=== PATIENT | male | born 1955 | race Two or more races ===

== ENCOUNTER 2017-12-28 21:40 | Inpatient (IN) | payer MEDICARE, OTHER ==
--- NOTE | 2017-12-28 23:49 | ER Document Report ---
ED General <WOOD ACOSTA - Last Filed: 12/29/17 09:38> <KING CHURCHILL - Last Filed: 12/29/17 21:03> - General Chief Complaint: Shortness Of Breath Stated Complaint: SHORTNESS OF BREATH Time Seen by Provider: 12/28/17 23:34 Notes: Patient is a 62-year-old male that comes emergency department with chief complaint of shortness of breath, abdominal swelling, states that he has a cough and has been feeling feverish over the past day and a half. He denies specific chest pain. Past medical history of liver cirrhosis and ascites, last had abdominocentesis 10 days ago in [place], he normally gets it about every 2 weeks. He also is a dialysis patient (MWF), he had dialysis yesterday. Patient is a diabetic, [id number]. He does not have COPD but he has had many cases of pneumonia in the past, he is up-to-date on both influenza and pneumonia vaccines. Patient has now moved here, he has a primary care follow-up established but he has not been to them yet. (KING CHURCHILL) - Related Data Allergies/Adverse Reactions: No Known Drug Allergies Allergy (Verified 12/29/17 07:14) Past Medical History - General Information source: Patient, Relative - Social History Family History: Hyperlipidemia, Hypertension <WOOD ACOSTA - Last Filed: 12/29/17 09:38> - General Information source: Patient, Relative - Social History Smoking Status: Never Smoker Frequency of alcohol use: former heavy Drug Abuse: None Lives with: Family - Past Medical History Cardiac Medical History: Reports: Hx Hypertension Renal/ Medical History: Reports: Hx Hemodialysis GI Medical History: Reports: Hx Liver Failure - Immunizations Hx Diphtheria, Pertussis, Tetanus Vaccination: Yes <KING CHURCHILL - Last Filed: 12/29/17 21:03> Review of Systems <WOOD ACOSTA - Last Filed: 12/29/17 09:38> - Review of Systems Constitutional: See HPI EENT: No symptoms reported Cardiovascular: No symptoms reported Respiratory: See HPI Gastrointestinal: See HPI Genitourinary: No symptoms reported Male Genitourinary: No symptoms reported Musculoskeletal: No symptoms reported Skin: No symptoms reported Hematologic/Lymphatic: No symptoms reported Neurological/Psychological: No symptoms reported <KING CHURCHILL - Last Filed: 12/29/17 21:03> - Review of Systems Notes: REVIEW OF SYSTEMS: CONSTITUTIONAL : Denies fever, chills, or sweats. Denies recent illness. EENT: Denies eye, ear, throat, or mouth pain or symptoms. Denies nasal or sinus congestion or discharge. Denies throat, tongue, or mouth swelling or difficulty swallowing. CARDIOVASCULAR: Denies chest pain. Denies palpitations or racing or irregular heart beat. Denies ankle edema. RESPIRATORY: Denies cough, cold, or chest congestion. reports shortness of breath, difficulty breathing, or wheezing. GASTROINTESTINAL: reports abdominal pain or distention. Denies nausea, vomiting, or diarrhea. Denies blood in vomitus, stools, or per rectum. Denies black, tarry stools. Denies constipation. GENITOURINARY: Denies difficulty urinating, painful urination, burning, frequency, blood in urine, or discharge. MUSCULOSKELETAL: Denies back or neck pain or stiffness. Denies joint pain or swelling. SKIN: Denies rash, lesions or sores. HEMATOLOGIC : Denies easy bruising or bleeding. LYMPHATIC: Denies swollen, enlarged glands. NEUROLOGICAL: Denies confusion or altered mental status. Denies passing out or loss of consciousness. Denies dizziness or lightheadedness. Denies headache. Denies weakness or paralysis or loss of use of either side. Denies problems with gait or speech. Denies sensory loss, numbness, or tingling. Denies seizures. PSYCHIATRIC: Denies anxiety or stress. Denies depression, suicidal ideation, or homicidal ideation. ALL OTHER SYSTEMS REVIEWED AND NEGATIVE. Dictation was performed using [employer] voice recognition software PHYSICAL EXAMINATION: GENERAL: Well-appearing, well-nourished and in no acute distress. HEAD: Atraumatic, normocephalic. EYES: Pupils equal round and reactive to light, extraocular movements intact, sclera anicteric, conjunctiva are normal. ENT: Nares patent, oropharynx clear without exudates. Moist mucous membranes. NECK: Normal range of motion, supple without lymphadenopathy LUNGS: Breath sounds clear to auscultation bilaterally and equal. No wheezes rales or rhonchi. HEART: Regular rate and rhythm without murmurs ABDOMEN: Soft, nontender, nondistended abdomen. No guarding, no rebound. No masses appreciated. Musculoskeletal: Normal range of motion, no pitting or edema. No cyanosis. NEUROLOGICAL: Cranial nerves grossly intact. Normal speech, normal gait. Normal sensory, motor exams PSYCH: Normal mood, normal affect. SKIN: Warm, Dry, normal turgor, no rashes or lesions noted. (WOOD ACOSTA) Physical Exam - General General appearance: Alert In distress: None - Respiratory Respiratory status: Tachypnea - Minimal tachypnea Breath sounds: Normal. No: Decreased air movement, Nonproductive cough, Wheezing - Cardiovascular Rhythm: Regular. No: Tachycardia Heart sounds: Normal auscultation, S1 appreciated, S2 appreciated - Abdominal Distension: Distended Tenderness: Tender - Generalized tenderness, nonspecific, no guarding - Back Back: Normal, Nontender. No: Tender - Extremities General upper extremity: Normal inspection, Nontender, Normal strength, Normal temperature General lower extremity: Normal inspection, Nontender, Normal strength, Normal temperature. No: Edema - Neurological Neuro grossly intact: Yes Cognition: Normal Orientation: AAOx4 Pierson Coma Scale Eye Opening: Spontaneous Lucia Coma Scale Verbal: Oriented Pierson Coma Scale Motor: Obeys Commands Pierson Coma Scale Total: 15 Speech: Normal Motor strength normal: LUE, RUE, LLE, RLE Sensory: Normal - Skin Skin Temperature: Warm Skin Moisture: Dry Skin Color: Normal <KING CHURCHILL - Last Filed: 12/29/17 21:03> - Vital signs Vitals: Temp Pulse Resp BP Pulse Ox 99.1 F 75 20 143/64 H 93 12/28/17 21:53 12/28/17 21:53 12/28/17 21:53 12/28/17 21:53 12/28/17 21:53 Course - Laboratory Result Diagrams: 12/29/17 00:30 12/29/17 00:30 <WOOD ACOSTA - Last Filed: 12/29/17 09:38> - Laboratory Result Diagrams: 12/29/17 00:30 12/29/17 00:30 <KING CHURCHILL - Last Filed: 12/29/17 21:03> - Re-evaluation Re-evalutation: sawmill supervisor and nurse library manager were able to coordinate patient to see dialysis today at [facility] due to chronic renal failure with a creatinine of 6.26, BUN 26 at 0900. Consulted with hospitalist. Dr. Kaitlynn Guaman MD at 0900, unable to reach her until 0930. due to patient having pneumonia acquiring oxygen to keep his pulse oxygenation greater than 92%. On ambulation patient is in respiratory distress with having difficulty breathing and becoming very pale, does not have oxygen at home. He was accepted for admission to the medical floor. (KARLA,WOOD A) Patient cannot lie flat or walk any short distance without becoming severely short of breath. Abdomen is tender and distended although not rigid or severely tender. Patient reporting fevers and sweats at home. Lungs clear to auscultation. Patient initially mildly hypoxic, this improves at rest or on 2 L nasal cannula. CBC shows normocytic anemia, no leukocytosis. Probably secondary to chronic kidney disease. Chemistry shows expected renal failure, unremarkable otherwise. Troponin is indeterminate, patient is not having chest pain. Will cycle. EKG showing right bundle branch block, inverted T waves in leads III but no T-wave inversions in consecutive leads or ST segment changes. No comparison available. Chest x-ray showing pneumonia. Lactic acid is not elevated, venous blood gas is unremarkable. Beginning broad-spectrum antibiotics because of patient's multiple pneumonias and recent hospital visits for paracentesis. Discussed with Dr. Reddy. For patient's symptoms decision was made to perform paracentesis, patient and family request and are agreeable with this, Dr. Reddy to bedside to advise. 3600 mL's were removed but no additional fluid was removed because of equipment available. Patient reporting improvement afterwards, he is obviously less distended. 12/29/17 Called battery vent plug inserter on-call, Dr. Lemons, she states that she would be happy to perform dialysis on patient if there are slots available for them in the hospital today. Nursing staff called supervisor cab, they state that they do not have an available slot even though they do have the nurses because of high volume. Will speak with family for potentially either patient going home or transfer. Discussed with Dr. Reddy. Family hopeful about patient going home, however we performed ambulation, patient became very pale, began breathing hard, and then almost passed out. He had to be placed in a chair and then rolled back to his room. Not stable for discharge. Discussed potential transfer with family, they do not want to be transferred, they asked about different avenues. Called and spoke with on-call [facility] nurse, she states that she does not have any input or ability to help at this time, requests we call the local facility. I did discuss with family again and they still request not to be transferred. (KING CHURCHILL) - Vital Signs Vital signs: Temp Pulse Resp BP Pulse Ox 97.5 F 66 18 140/51 H 99 12/29/17 14:55 12/29/17 14:55 12/29/17 14:55 12/29/17 14:55 12/29/17 14:55 - Laboratory Laboratory results interpreted by me: 12/29/17 12/29/17 12/29/17 00:30 00:30 00:30 RBC 3.19 L Hgb 10.1 L Hct 30.5 L RDW 16.2 H Plt Count 75 L Seg Neutrophils % 80.4 H Lymphocytes % 8.9 L VBG pH 7.44 H BUN 32 H Creatinine 6.26 H Est GFR ( Amer) 11 L Est GFR (Non-Af Amer) 9 L Glucose 130 H Direct Bilirubin 0.7 H Alkaline Phosphatase 145 H Total Protein 6.2 L Albumin 2.9 L Procedures <WOOD ACOSTA - Last Filed: 12/29/17 09:38> - Paracentesis RLQ Time completed: 03:00 Consent obtained: Yes - verbal Paracentesis pre-procedure: Sterile PPE donned, Chloraprep applied, Sterile drapes applied Needle size: 14 Paracentesis location: RLQ Anesthetic type: 1% Lidocaine mL's of anesthetic: 5 Amount/type of drainage: 3600 cc of fluid, non-purulent Number of attempts: 1 Ultrasound guided: Yes Complications: No <KING CHURCHILL - Last Filed: 12/29/17 21:03> - Paracentesis RLQ Notes: 12/29/17 03:05 Dr. Reddy at bedside. Attempted to use the catheter with introducer, however this was unable to penetrate after an incision had been made with a scalpel through the abdominal wall and into the ascites fluid. Instead a 14-gauge needle was used without any difficulty, clear fluid obtained, no complications, stopped bleeding quickly with pressure, sterile dressing applied. (KING CHURCHILL) Discharge - Discharge Admitting Provider: Hospitalist - Dr. Kaitlynn Burpee Unit Admitted: Medical Floor <WOOD ACOSTA - Last Filed: 12/29/17 09:38> <KING CHURCHILL - Last Filed: 12/29/17 21:03> - Discharge Clinical Impression: Oxygen dependent Pneumonia Qualifiers: Pneumonia type: due to unspecified organism Laterality: right Lung location: unspecified part of lung Qualified Code(s): J18.9 - Pneumonia, unspecified organism Chronic renal failure Qualifiers: Chronic kidney disease stage: unspecified stage Qualified Code(s): N18.9 - Chronic kidney disease, unspecified Condition: Good Disposition: ADMITTED INPATIENT
--- NOTE | 2017-12-29 00:23 | RADIOLOGY REPORT (SQ) ---
EXAM DESCRIPTION: CHEST SINGLE VIEW CLINICAL HISTORY: shortness of breath, cough, fever COMPARISON: None. FINDINGS: Single frontal view of the chest. Right-sided pacemaker. Cardiomegaly. Left basilar airspace opacity. Possible small left pleural effusion. No pneumothorax identified. Leads overlie the chest. No acute osseous abnormalities. Upper abdominal soft tissues are unremarkable. IMPRESSION: 1. Left basilar airspace opacity concerning for pneumonia. Continued radiographic follow-up to resolution recommended. 2. Cardiomegaly.
[2017-12-29 00:54] LABS: ABSOLUTE BASOPHILS # (AUTO) 0.1 10^3/uL (0.0-0.2); ABSOLUTE EOSINOPHILS # (AUTO) 0.1 10^3/uL (0.0-0.6); ABSOLUTE LYMPHOCYTES (AUTO) 0.6 10^3/uL (0.5-4.7); ABSOLUTE MONOCYTES (AUTO) 0.6 10^3/uL (0.1-1.4); ABSOLUTE NEUT (AUTO) 5.2 10^3/uL (1.7-8.2); BASOPHILS % (AUTO) 0.8 % (0-2); EOSINOPHILS % (AUTO) 1.2 % (0-6); HEMATOCRIT 30.5 % (37.9-51.0); HEMOGLOBIN 10.1 g/dL (13.5-17.0); LYMPHOCYTES % (AUTO) 8.9 % (13-45); MEAN CORPUSCULAR HEMOGLOBIN 31.6 pg (27.0-33.4); MEAN CORPUSCULAR VOLUME 96 fl (80-97); MONOCYTES % (AUTO) 8.7 % (3-13); RED BLOOD COUNT 3.19 10^6/uL (4.35-5.55); RED CELL DISTRIBUTION WIDTH 16.2 % (11.5-14.0); SEGMENTED NEUTROPHILS % (AUTO) 80.4 % (42-78); TOTAL CELLS COUNTED % (AUTO) 100 %; WHITE BLOOD COUNT 6.5 10^3/uL (4.0-10.5)
[2017-12-29 01:03] LABS: VENOUS BLOOD BASE EXCESS 5.6 mmol/L; VENOUS BLOOD HCO3 30.7 mmol/L (20-32); VENOUS BLOOD PCO2 46.5 mmHg (35-63); VENOUS BLOOD PH 7.44 (7.30-7.42)
[2017-12-29 01:12] LABS: ALANINE AMINOTRANSFERASE 26 U/L (21-72); ALBUMIN 2.9 g/dL (3.5-5.0); ALKALINE PHOSPHATASE 145 U/L (38-126); ANION GAP 12 (5-19); ASPARTATE AMINO TRANSFERASE 28 U/L (17-59); BILIRUBIN,DIRECT 0.7 mg/dL (0.0-0.4); BILIRUBIN,TOTAL 0.7 mg/dL (0.2-1.3); BLOOD UREA NITROGEN 32 mg/dL (7-20); CALCIUM 8.7 mg/dL (8.4-10.2); CARBON DIOXIDE 29 mmol/L (22-30); CHLORIDE 98 mmol/L (98-107); GLUCOSE 130 mg/dL (75-110); LIPASE 48.2 U/L (23-300); POTASSIUM 4.7 mmol/L (3.6-5.0); SODIUM 139.4 mmol/L (137-145); TOTAL PROTEIN 6.2 g/dL (6.3-8.2)
[2017-12-29 01:23] LABS: PLATELET COUNT 75 10^3/uL (150-450)
[2017-12-29] MEDS ORDERED: VANCOMYCIN HCL INJ 1000 MG VIAL IV ONE (01:39)
[2017-12-29] MEDS ORDERED: CEFEPIME 2 GM/D5W RTU 2 GM/50 ML RTUPB IV ONE (01:39)
[2017-12-29 03:51] LABS: FLUID COLOR YELLOW; FLUID SOURCE ASCITES; FLUID TYPE PERITONEAL
[2017-12-29 03:52] LABS: FLUID APPEARANCE SLIGHTLY HAZY; FLUID VISCOSITY LIQUID
--- NOTE | 2017-12-29 08:42 | EKG REPORT ---
SEVERITY:- ABNORMAL ECG - SINUS RHYTHM RBBB AND LAFB : Confirmed by: Kemar Fischer 29-Dec-2017 08:41:59
[2017-12-29] MEDS ORDERED: EPOETIN ALFA INJ 20000 UNIT/1 ML VIAL (RENAL) IV PRN (08:45)
[2017-12-29] MEDS ORDERED: ACETAMINOPHEN 325 MG TABLET PO PRN (10:56)
[2017-12-29 11:37] LABS: PATH REVIEW PATHOLOGIST REVIEWED
[2017-12-29 11:57] LABS: INTERNATIONAL RATION (INR) 1.03; PROTHROMBIN TIME 14.3 SEC (11.4-15.4)
[2017-12-29 12:16] LABS: CREATINE KINASE MB 1.38 ng/mL (<4.55)
[2017-12-29 12:20] LABS: TROPONIN I 0.084 ng/mL
[2017-12-29 12:31] LABS: FREE T4 (FREE THYROXINE) 1.73 ng/dL (0.78-2.19)
[2017-12-29 12:46] LABS: THYROID STIMULATING HORMONE 1.62 uIU/mL (0.47-4.68)
[2017-12-29] MEDS: HEPARIN SOD (PORCINE) 5,000 UNIT/ML 1 ML SYRINGE SUBCUT SCH ×2 (13:43→21:13)
--- NOTE | 2017-12-29 13:52 | PDOC CONSULTATION ---
Consultation Consult Date: 12/29/17 Consult reason:: Emergent dialysis in face of CHF and cirrhosis. History of Present Illness Admission Date/PCP: 12/29/17 09:39 NO LOCALMD History of Present Illness: BHUPENDRA JUAREZ is a 62 year old male with a h/o of long standing complicated Diabetes, Hypertension, ESRD on HD, Cryptogenic Cirrhosis with portal hypertension who recently moved here from [place] presents to the hospital early this AM with c.o Cough with expectoration, fever and chills x 1- 2 days duration, progressive abdominal distension, dyspnea and feeling weak. He was desaturating with minimal exertion. He has been diagnosed to have left Pneumonia on CKR. S/P antibiotics. He also had approx 4 L of paracentesis of his acitic fluid and feels better after that. He was dialysed yesterday as at [facility] without any issues. He is a poor historian. He has Cirrhosis and has been having persistent and recurring Ascites and was undergoing periodic Paracentesis. He used to have it initially infrequently but in the last two months have had to have it q 2 weekly. His last one was a week- 10 days ago just before he moved here from [place]. No c/o of nay abdominal pains, fever or chills. He has been constipated for a while and with a frequency of a bowel q 2-3 days. No idea of Lactulose. His labs and meds were reviewed .He is currently being sen on HD .Undergoing HD without any issues. Past Medical History Cardiac Medical History: Reports: CHF-Systolic, Hypertension-primary Neurological Medical History: Reports: Ischemic CVA Neurological History Note: Of left side. Renal/ Medical History: Reports: End Stage Renal Disease, Secondary Hyperparathyroidism GI Medical History: Reports: Cirrhosis - - Cryptogenic Hematology Medical History: Reports Anemia of Chronic Kidney Disease Social History Smoking Status: Former Smoker Family History Parental Family History Reviewed: Yes - pos for DM and ESRD. Children Family History Reviewed: Yes Sibling(s) Family History Reviewed.: Yes - brother with DM and ESRD Medication/Allergy Home Medications: Amlodipine Besylate [Norvasc 10 mg Tablet] 10 mg PO DAILY 12/29/17 Aspirin [Ecotrin 325 mg EC Tablet] 325 mg PO DAILY 12/29/17 Atorvastatin Calcium [Lipitor 10 mg Tablet] 10 mg PO QHS 12/29/17 Cinacalcet HCl [Sensipar 30 mg Tablet] 30 mg PO WSUPPER 12/29/17 Citalopram Hydrobromide [Celexa 20 mg Tablet] 40 mg PO DAILY 12/29/17 Clindamycin Phosphate [Clindamax Lotion] 1 applic TOP BID 12/29/17 Ferric Citrate [Auryxia] 420 mg PO MEALS 12/29/17 Gabapentin [Neurontin 100 mg Capsule] 100 mg PO QHS 12/29/17 Glimepiride [Amaryl] 2 mg PO DAILY 12/29/17 Multivitamin [Tab-A-Jose (Multiple Vitamin) Tablet] 1 tab PO DAILY 12/29/17 Omeprazole 20 mg PO DAILY 12/29/17 Pentoxifylline [Trental 400 mg Tablet.sa] 400 mg PO DAILY 12/29/17 Pyridoxine HCl (Vitamin B6) [Vitamin B-6] 100 mg PO DAILY 12/29/17 Ranitidine HCl [Zantac] 300 mg PO ACSUPPER 12/29/17 Tiotropium [place] [Spiriva Handihaler 5 Cap/Kit (18 Mcg/Cap)] 2 puff IH DAILY 12/29/17 Clonidine HCl [Catapres 0.1 mg Tablet] 0.1 mg PO Q8HP PRN tablet 01/01/18 Doxycycline Hyclate [Vibramycin 100 mg Tablet] 100 mg PO Q12 5 Days #10 tablet 01/01/18 Allergies/Adverse Reactions: No Known Drug Allergies Allergy (Verified 12/29/17 07:14) Review of Systems Constitutional: PRESENT: anorexia, fatigue. ABSENT: chills, fever(s) Nose, Mouth, and Throat: ABSENT: mouth pain, sore throat Cardiovascular: PRESENT: dyspnea on exertion, edema, palpitations. ABSENT: orthropnea Respiratory: PRESENT: cough, dyspnea. ABSENT: hemoptysis Gastrointestinal: PRESENT: bloating, constipation. ABSENT: abdominal pain, coffee ground emesis, diarrhea, hematemesis, melena, nausea, vomiting Neurological: ABSENT: abnormal gait, abnormal movements, abnormal speech, confusion, focal weakness Hematologic/Lymphatic: ABSENT: easy bleeding, easy bruising, lymphadenopathy Physical Exam Vital Signs: Temp Pulse Resp BP Pulse Ox 97.9 F 75 11 L 108/48 L 99 12/29/17 07:01 12/28/17 21:53 12/29/17 07:59 12/29/17 08:00 12/29/17 08:01 General appearance: PRESENT: no acute distress Eye exam: PRESENT: conjunctiva pink, EOMI, PERRLA. ABSENT: nystagmus Mouth exam: PRESENT: moist, neck supple Neck exam: ABSENT: lymphadenopathy, meningismus, tenderness, thyromegaly, tracheal deviation Respiratory exam: PRESENT: clear to auscultation gustavo, crackles. ABSENT: rhonchi Cardiovascular exam: PRESENT: +S1, +S2, systolic murmur GI/Abdominal exam: PRESENT: ascites, distended, normal bowel sounds, organomegaly, soft. ABSENT: tenderness Extremities exam: PRESENT: pedal edema Neurological exam: PRESENT: alert, awake, oriented to person, oriented to place Psychiatric exam: PRESENT: appropriate affect Skin exam: PRESENT: normal color. ABSENT: cyanosis, erythema, mottled Results Laboratory Results: 12/29/17 11:30 TSH 1.62 Free T4 1.73 12/29/17 12/29/17 11:30 11:30 Creatine Kinase 22 L CK-MB (CK-2) 1.38 Troponin I 0.084 Impressions: Chest X-Ray 12/28/17 23:43 IMPRESSION: 1. Left basilar airspace opacity concerning for pneumonia. Continued radiographic follow-up to resolution recommended. 2. Cardiomegaly. Assessment & Plan - Diagnosis (1) ESRD (end stage renal disease) on dialysis Plan: Sen on HD. Undergoing HD without any issues. Its being supervised to ensure a safe and smooth procedure. VS stable.Orders were discussed with treating RN. Plan to remove 2 - 3 L as tolerated. (2) Cirrhosis Plan: Cryptogenic. Has Portal hypertension with recurrent and persistent ascites for which he has been having paracentesis q 2 weekly over the last 2 -3 months now. Needs to have paracentesis doen here. Later will need to have pcp and GI closely watching him. Adv the need for adequate bowel movements as he was constipated for the last 2 months or so. (3) Diabetes 1.5, managed as type 2 Plan: Adv on need for tight sugar control. (4) Pneumonia Qualifiers: Pneumonia type: due to unspecified organism Laterality: right Lung location: unspecified part of lung Qualified Code(s): J18.9 - Pneumonia, unspecified organism Plan: On antibiotics.
[2017-12-29] MEDS ORDERED: CLONIDINE HCL 0.1 MG TABLET PO PRN (16:06)
[2017-12-29] MEDS ORDERED: DEXTROSE 40% GEL 15 GM TUBE PO PRN ×4 (16:28→19:01)
[2017-12-29] MEDS ORDERED: GLUCAGON,HUMAN RECOMB 1 MG INJ IM PRN ×2 (16:28→19:01)
[2017-12-29] MEDS ORDERED: DEXTROSE 50%-WATER 25 GM/50 ML DISP.SYRIN IV PRN ×4 (16:28→19:01)
--- NOTE | 2017-12-29 16:28 | PDOC H&P ---
History of Present Illness Admission Date/PCP: 12/29/17 09:39 NO LOCALMD Patient complains of: Abdominal swelling, dyspnea History of Present Illness: This is a 62-year-old man who came to the ER with family secondary to abdominal pain and swelling along with shortness of breath. He has recently moved to this local area from [place], has moved here to be closer to family. He arrived into the local area within the past week and does not have a new doctor , has not set up with a new dialysis center. He tells us that regarding his abdominal distention he has cirrhosis of unknown etiology and receives regular paracenteses. He also tells us that he has diabetes and end-stage kidney disease for which he gets dialysis on Monday. He is found to have a pneumonia on chest x-ray. In the ER paracentesis was performed. He tolerated that procedure well and his abdominal situation is improved. He has gone to dialysis today from the ER. Secondary to pneumonia the patient is being admitted to the hospitalist service. 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 Last Time Smoked: 30 years ago Frequency of Alcohol Use: None Hx Recreational Drug Use: No Hx Prescription Drug Abuse: No - Advance Directive Resuscitation Status: Full Code Family History Family History: Hyperlipidemia, Hypertension Parental Family History Reviewed: Yes - Father was hemodialysis dependent from chronic kidney disease from diabetes Children Family History Reviewed: Yes - Son has thyroid problems and hypertension Sibling(s) Family History Reviewed.: Yes - His sister has kidney problems and diabetes Medication/Allergy Allergies/Adverse Reactions: No Known Drug Allergies Allergy (Verified 12/29/17 07:14) Review of Systems Constitutional: ABSENT: anorexia, chills, fever(s), headache(s) Eyes: ABSENT: visual disturbances Ears: ABSENT: hearing changes Nose, Mouth, and Throat: ABSENT: mouth pain, sore throat Cardiovascular: ABSENT: edema, orthropnea, palpitations Gastrointestinal: PRESENT: abdominal pain, bloating Musculoskeletal: ABSENT: back pain Integumentary: PRESENT: lesions - Transmetatarsal amputation site has small skin crack drainage or evidence of infection currently Neurological: PRESENT: numbness, tingling Psychiatric: ABSENT: anxiety, depression Endocrine: ABSENT: cold intolerance, heat intolerance Hematologic/Lymphatic: ABSENT: easy bleeding Physical Exam Vital Signs: Temp Pulse Resp BP Pulse Ox 97.5 F 66 18 140/51 H 99 12/29/17 14:55 12/29/17 14:55 12/29/17 14:55 12/29/17 14:55 12/29/17 14:55 General appearance: PRESENT: no acute distress, cooperative Head exam: PRESENT: atraumatic, normocephalic Eye exam: PRESENT: conjunctiva pink, EOMI, PERRLA. ABSENT: scleral icterus Mouth exam: PRESENT: moist, tongue midline Throat exam: ABSENT: tonsillar exudate Respiratory exam: PRESENT: prolonged expiratory phas, rales - Trace at the bilateral bases, unlabored. ABSENT: wheezes Cardiovascular exam: PRESENT: RRR, systolic murmur GI/Abdominal exam: PRESENT: distended - Slight distention without tenderness, normal bowel sounds, soft. ABSENT: guarding, tenderness Rectal exam: PRESENT: deferred Extremities exam: ABSENT: calf tenderness, pedal edema Musculoskeletal exam: PRESENT: other - Well-healed transmetatarsal amputation right foot, hemodialysis fistulas Neurological exam: PRESENT: alert, awake, oriented to person, oriented to place , oriented to situation, CN II-XII grossly intact Psychiatric exam: PRESENT: appropriate affect. ABSENT: anxious Skin exam: PRESENT: dry, warm - Small crack right foot Results Laboratory Results: 12/29/17 11:30 TSH 1.62 Free T4 1.73 12/29/17 12/29/17 11:30 11:30 Creatine Kinase 22 L CK-MB (CK-2) 1.38 Troponin I 0.084 Impressions: Chest X-Ray 12/28/17 23:43 IMPRESSION: 1. Left basilar airspace opacity concerning for pneumonia. Continued radiographic follow-up to resolution recommended. 2. Cardiomegaly. Assessment & Plan - Diagnosis (1) ESRD (end stage renal disease) on dialysis Is this a current diagnosis for this admission?: Yes Plan: Patient is diabetic and hypertensive. He undergoes dialysis Monday. He has just moved to the area and does not have any doctors or dialysis center. I have consulted the motor scooter repairer. Has undergone dialysis today. We will continue with Monday dialysis and will follow his labs. (2) Pneumonia Qualifiers: Pneumonia type: due to unspecified organism Laterality: right Lung location: unspecified part of lung Qualified Code(s): J18.9 - Pneumonia, unspecified organism Is this a current diagnosis for this admission?: Yes Plan: We will start the patient on ceftriaxone and azithromycin for community- acquired pneumonia. He has acute hypoxemic respiratory failure secondary to his pneumonia. We will titrate oxygen as is possible. (3) Skin abnormality Is this a current diagnosis for this admission?: Yes Plan: Wound care to prevent infection diabetic (4) Hypertension Is this a current diagnosis for this admission?: Yes Plan: We do not know what this patient's medication regimen is, I have asked his family to bring in the medication list, I have ordered as needed clonidine for now. He was slightly hypotensive after dialysis and now he is close to normotensive. Telemetry ordered. (5) Hypothyroidism Is this a current diagnosis for this admission?: Yes Plan: Patient thinks he has hypothyroidism but is unclear. Will order TSH and free T4. (6) Cirrhosis Is this a current diagnosis for this admission?: Yes Plan: Cryptogenic as far as we know at this time. We have asked family to bring in medical records from his previous doctors. He has undergone paracentesis in the ER. Hope to gain more information so that we know how to treat his cirrhosis appropriately, he is not an alcohol user and this is not thought to be an alcoholic cirrhosis. Monitor for need for repeat paracentesis. (7) Diabetes 1.5, managed as type 2 Is this a current diagnosis for this admission?: Yes Plan: Unknown medications. Have asked family to bring in his medication list. We will start him on lispro before meals and at bedtime for now. (8) Oxygen dependent Is this a current diagnosis for this admission?: Yes Plan: Acute hypoxemic respiratory failure secondary to pneumonia. He is on oxygen now and we will treat the pneumonia and titrate oxygen off as we are able. - Time Time Spent: Greater than 70 Minutes Anticipated discharge: Home - Inpatient Certification Based on my medical assessment, after consideration of the patient's comorbidities, presenting symptoms, or acuity I expect that the services needed warrant INPATIENT care.: Yes I certify that my determination is in accordance with my understanding of Medicare's requirements for reasonable and necessary INPATIENT services [42 CFR 412.3e].: Yes Medical Necessity: Significant Comorbidiites Make Outpatient Treatment Too Risky , Need Close Monitoring Due to Risk of Patient Decompensation, Risk of Complication if Not Cared For in Hospital
[2017-12-29 17:51] LABS: CREATINE KINASE MB 1.57 ng/mL (<4.55); TROPONIN I 0.071 ng/mL
[2017-12-29 17:56] LABS: FREE T4 (FREE THYROXINE) 1.89 ng/dL (0.78-2.19)
[2017-12-29] MEDS ORDERED: CEFTRIAXONE SODIUM 1,000 MG in DEXTROSE 5%-WATER 50 ML IV SCH (18:00)
[2017-12-29] MEDS ORDERED: CEFTRIAXONE 1 GM/D5W RTU 1 GM/50 ML RTUPB IV SCH (18:00)
[2017-12-29 18:10] LABS: THYROID STIMULATING HORMONE 1.21 uIU/mL (0.47-4.68)
[2017-12-29] MEDS ORDERED: PENTOXIFYLLINE 400 MG TABLET.SA PO ONE (20:00)
[2017-12-29] MEDS ORDERED: CLINDAMYCIN PHOSPHATE TOP SCH (21:15)
[2017-12-29] MEDS: GABAPENTIN 100 MG CAPSULE PO SCH (21:16)
[2017-12-29] MEDS: ATORVASTATIN CALCIUM 10 MG TABLET PO SCH (21:16)
[2017-12-29] MEDS: DOXYCYCLINE HYCLATE 100 MG TABLET PO SCH (21:16)
[2017-12-29] MEDS ORDERED: (PENDING PHARMACY ID) (Ferric Citrate [Auryxia] 420 MG) PO SCH (22:00)
[2017-12-29] MEDS ORDERED: GABAPENTIN 100 MG CAPSULE PO SCH (22:00)
[2017-12-29] MEDS ORDERED: PYRIDOXINE HCL 100 MG PO SCH (22:00)
[2017-12-29 23:47] LABS: CREATINE KINASE MB 1.95 ng/mL (<4.55); TROPONIN I 0.069 ng/mL
[2017-12-30] MEDS: HEPARIN SOD (PORCINE) 5,000 UNIT/ML 1 ML SYRINGE SUBCUT SCH ×3 (05:44→22:24)
[2017-12-30] MEDS: LANSOPRAZOLE 15 MG TAB.RAP.DR PO SCH (06:19)
[2017-12-30 06:55] LABS: ALANINE AMINOTRANSFERASE 35 U/L (21-72); ALBUMIN 2.7 g/dL (3.5-5.0); ALKALINE PHOSPHATASE 149 U/L (38-126); ANION GAP 12 (5-19); ASPARTATE AMINO TRANSFERASE 29 U/L (17-59); BILIRUBIN,DIRECT 0.4 mg/dL (0.0-0.4); BILIRUBIN,TOTAL 0.5 mg/dL (0.2-1.3); BLOOD UREA NITROGEN 32 mg/dL (7-20); CALCIUM 8.6 mg/dL (8.4-10.2); CARBON DIOXIDE 30 mmol/L (22-30); CHLORIDE 97 mmol/L (98-107); GLUCOSE 178 mg/dL (75-110); PHOSPHORUS 4.9 mg/dL (2.5-4.5); POTASSIUM 4.4 mmol/L (3.6-5.0); SODIUM 138.8 mmol/L (137-145); TOTAL PROTEIN 5.6 g/dL (6.3-8.2)
[2017-12-30 07:03] LABS: HEMATOCRIT 30.3 % (37.9-51.0); HEMOGLOBIN 10.2 g/dL (13.5-17.0); MEAN CORPUSCULAR HGB CONC 33.6 g/dL (32.0-36.0); MEAN CORPUSCULAR VOLUME 95 fl (80-97); RED BLOOD COUNT 3.19 10^6/uL (4.35-5.55); RED CELL DISTRIBUTION WIDTH 16.1 % (11.5-14.0); WHITE BLOOD COUNT 4.7 10^3/uL (4.0-10.5)
[2017-12-30] MEDS ORDERED: (PENDING PHARMACY ID) (Ferric Citrate [Auryxia] 420 MG) PO SCH (08:00)
[2017-12-30] MEDS: INSULIN LISPRO 100 UNIT/ML 3 ML VIAL SUBCUT SCH ×3 (08:05→17:15)
[2017-12-30 08:18] LABS: PLATELET COUNT 64 10^3/uL (150-450)
[2017-12-30] MEDS ORDERED: AZITHROMYCIN 250 MG TABLET PO SCH (10:00)
[2017-12-30] MEDS ORDERED: PYRIDOXINE HCL 100 MG PO SCH (10:00)
[2017-12-30] MEDS ORDERED: CLINDAMYCIN PHOSPHATE TOP SCH (10:00)
[2017-12-30] MEDS: CITALOPRAM HYDROBROMIDE 20 MG TABLET PO SCH (10:32)
[2017-12-30] MEDS: PENTOXIFYLLINE 400 MG TABLET.SA PO SCH (10:32)
[2017-12-30] MEDS: ASPIRIN 325 MG TABLET, ENT COATED PO SCH (10:32)
[2017-12-30] MEDS: AMLODIPINE BESYLATE 10 MG TABLET PO SCH (10:33)
[2017-12-30] MEDS: PYRIDOXINE HCL 50 MG TABLET PO SCH (10:33)
[2017-12-30] MEDS: DOXYCYCLINE HYCLATE 100 MG TABLET PO SCH ×2 (10:33→22:33)
[2017-12-30] MEDS: MULTIVITAMIN TABLET PO SCH (10:33)
[2017-12-30] MEDS: TIOTROPIUM BROMIDE DPI 5 CAP/KIT (18 MCG/CAP) IH SCH (10:34)
[2017-12-30] MEDS ORDERED: (PENDING PHARMACY ID) (Ranitidine Hcl [Zantac] 300 MG) PO SCH (16:00)
--- NOTE | 2017-12-30 16:55 | RADIOLOGY REPORT (SQ) ---
EXAM DESCRIPTION: CHEST PA/LAT COMPLETED DATE/TIME: 12/30/2017 4:43 pm REASON FOR STUDY: PNEUMONIA COMPARISON: 12/28/2017. NUMBER OF VIEWS: One view. TECHNIQUE: Single frontal radiographic view of the chest acquired. LIMITATIONS: None. FINDINGS: LUNGS AND PLEURA: Mild interstitial edema with trace bilateral pleural effusions. MEDIASTINUM AND HILAR STRUCTURES: No masses or contour abnormality. HEART AND VASCULATURE: Cardiac enlargement. Vascular congestion. BONES: No acute findings. HARDWARE: Stable. OTHER: No other significant finding. IMPRESSION: MILD INTERSTITIAL EDEMA WITH TRACE BILATERAL PLEURAL EFFUSIONS. TECHNICAL DOCUMENTATION: JOB ID: [id number] [employer]- All Rights Reserved Reading location - IP/workstation name: [email or web address]
[2017-12-30] MEDS: CEFTRIAXONE SODIUM 1,000 MG in NORMAL SALINE 100 ML IV SCH (17:14)
[2017-12-30] MEDS: FAMOTIDINE 20 MG TABLET PO SCH (17:14)
[2017-12-30] MEDS: CINACALCET HCL 30 MG TABLET PO SCH (17:15)
--- NOTE | 2017-12-30 18:28 | PDOC PROGRESS REPORT ---
Subjective Progress Note for:: 12/30/17 Subjective:: Patient is frustrated that I have ordered a hemodialysis diet and he is essentially refusing to eat. He states he eats normal food at home and so I have ordered him a regular diet against my better judgment though I do want the patient to eat. We will follow his CBGs carefully. No chest pain. No new shortness of breath. Abdominal pain nausea or vomiting. He is overall feeling better. Reason For Visit: LEFT LOWER LOBE PNEUMONIA,ACUTE HYPOXEMIC Physical Exam Vital Signs: Temp Pulse Resp BP Pulse Ox 98.0 F 60 16 109/60 94 12/30/17 17:00 12/30/17 17:00 12/30/17 17:00 12/30/17 17:00 12/30/17 17:00 Intake & Output 12/29/17 12/30/17 12/31/17 06:59 06:59 07:59 Intake Total 1800 300 Output Total 2200 Balance -400 300 Weight 88.1 kg General appearance: PRESENT: no acute distress, cooperative Head exam: PRESENT: atraumatic, normocephalic Eye exam: PRESENT: EOMI Mouth exam: PRESENT: moist, tongue midline Respiratory exam: PRESENT: rales - trace at bilateral bases. ABSENT: rhonchi, wheezes Cardiovascular exam: PRESENT: RRR. ABSENT: systolic murmur Pulses: PRESENT: normal radial pulses GI/Abdominal exam: PRESENT: distended, normal bowel sounds, soft. ABSENT: firm , guarding, tenderness Rectal exam: PRESENT: deferred Neurological exam: PRESENT: alert, awake, oriented to person, oriented to place , oriented to situation, CN II-XII grossly intact Psychiatric exam: PRESENT: appropriate affect. ABSENT: anxious Skin exam: PRESENT: dry, warm - Dry right heel ulcer without evidence of infection, no pain. Crack in the right foot at the site of the transmetatarsal amputation without evidence of infection. Results Laboratory Results: 12/30/17 06:13 12/30/17 06:13 12/30/17 12/30/17 06:13 06:13 WBC 4.7 RBC 3.19 L Hgb 10.2 L Hct 30.3 L MCV 95 MCH 32.0 MCHC 33.6 RDW 16.1 H Plt Count 64 L Sodium 138.8 Potassium 4.4 Chloride 97 L Carbon Dioxide 30 Anion Gap 12 BUN 32 H Creatinine 5.62 H Est GFR ( Amer) 12 L Est GFR (Non-Af Amer) 10 L Glucose 178 H Calcium 8.6 Phosphorus 4.9 H Total Bilirubin 0.5 AST 29 ALT 35 Alkaline Phosphatase 149 H Total Protein 5.6 L Albumin 2.7 L 12/29/17 12/29/17 12/29/17 11:30 11:30 17:00 Creatine Kinase 22 L 25 L CK-MB (CK-2) 1.38 Troponin I 0.084 12/29/17 12/29/17 12/29/17 17:00 23:10 23:10 Creatine Kinase 27 L CK-MB (CK-2) 1.57 1.95 Troponin I 0.071 0.069 Impressions: Chest X-Ray 12/30/17 00:00 IMPRESSION: MILD INTERSTITIAL EDEMA WITH TRACE BILATERAL PLEURAL EFFUSIONS. Assessment & Plan - Diagnosis (1) ESRD (end stage renal disease) on dialysis Is this a current diagnosis for this admission?: Yes Plan: Continue dialysis Monday. Hopefully after dialysis on Monday we can discharge him to home with a safe follow-up plan. (2) Pneumonia Qualifiers: Pneumonia type: due to unspecified organism Laterality: right Lung location: unspecified part of lung Qualified Code(s): J18.9 - Pneumonia, unspecified organism Is this a current diagnosis for this admission?: Yes Plan: Improving, satting well on room air, continue ceftriaxone and doxycycline. (3) Skin abnormality Is this a current diagnosis for this admission?: Yes Plan: Patient is receiving wound care to the right foot. We are trying to offload the pressure as possible. He will need good PCP care which will be arranged prior to discharge. (4) Hypertension Is this a current diagnosis for this admission?: Yes Plan: I started his home medications. Blood pressure is well controlled. No changes. (5) Hypothyroidism Is this a current diagnosis for this admission?: Yes Plan: TSH and free T4 are normal. No medication indicated. (6) Cirrhosis Is this a current diagnosis for this admission?: Yes Plan: Cryptogenic. Patient will need close follow-up for regular paracenteses which he has been receiving for some time now. (7) Diabetes 1.5, managed as type 2 Is this a current diagnosis for this admission?: Yes Plan: Continue current care. (8) Oxygen dependent Is this a current diagnosis for this admission?: Yes Plan: His acute hypoxemic respiratory failure has resolved. He is no longer requiring oxygen. - Time Time Spent with patient: 25-34 minutes - Inpatient Certification Based on my medical assessment, after consideration of the patient's comorbidities, presenting symptoms, or acuity I expect that the services needed warrant INPATIENT care.: Yes I certify that my determination is in accordance with my understanding of Medicare's requirements for reasonable and necessary INPATIENT services [42 CFR 412.3e].: Yes Medical Necessity: Need Close Monitoring Due to Risk of Patient Decompensation, Risk of Complication if Not Cared For in Hospital
[2017-12-30] MEDS: ATORVASTATIN CALCIUM 10 MG TABLET PO SCH (22:32)
[2017-12-30] MEDS: GABAPENTIN 100 MG CAPSULE PO SCH (22:32)
[2017-12-30] MEDS: GUAIFENESIN 600 MG TABLET.SA PO SCH (22:33)
[2017-12-31] MEDS: HEPARIN SOD (PORCINE) 5,000 UNIT/ML 1 ML SYRINGE SUBCUT SCH ×2 (06:33→13:49)
[2017-12-31] MEDS: LANSOPRAZOLE 15 MG TAB.RAP.DR PO SCH (07:36)
[2017-12-31] MEDS: INSULIN LISPRO 100 UNIT/ML 3 ML VIAL SUBCUT SCH ×3 (08:19→16:21)
[2017-12-31] MEDS: GUAIFENESIN 600 MG TABLET.SA PO SCH ×2 (10:16→22:41)
[2017-12-31] MEDS: PENTOXIFYLLINE 400 MG TABLET.SA PO SCH (10:16)
[2017-12-31] MEDS: MULTIVITAMIN TABLET PO SCH (10:17)
[2017-12-31] MEDS: CITALOPRAM HYDROBROMIDE 20 MG TABLET PO SCH (10:17)
[2017-12-31] MEDS: AMLODIPINE BESYLATE 10 MG TABLET PO SCH (10:17)
[2017-12-31] MEDS: DOXYCYCLINE HYCLATE 100 MG TABLET PO SCH ×2 (10:17→22:41)
[2017-12-31] MEDS: ASPIRIN 325 MG TABLET, ENT COATED PO SCH (10:17)
[2017-12-31] MEDS: PYRIDOXINE HCL 50 MG TABLET PO SCH (10:17)
[2017-12-31] MEDS: TIOTROPIUM BROMIDE DPI 5 CAP/KIT (18 MCG/CAP) IH SCH (10:18)
[2017-12-31] MEDS: INSULIN LISPRO 100 UNIT/ML 3 ML VIAL SUBCUT PRN ×2 (11:42→22:42)
[2017-12-31] MEDS: FAMOTIDINE 20 MG TABLET PO SCH (16:32)
[2017-12-31] MEDS: CINACALCET HCL 30 MG TABLET PO SCH (16:32)
--- NOTE | 2017-12-31 16:56 | PDOC PROGRESS REPORT ---
Subjective Progress Note for:: 12/31/17 Subjective:: Mr. Sandoval is feeling good today. His breathing has improved. He is not producing much phlegm. No hematemesis. No hemoptysis. He is eating and drinking well. He realizes his CBG is a little bit high but if I did not give him a regular diet he would not eat he tells me. He is not constipated. He does not have acute pain. He is asking if he can shower today. No fever or chills. Reason For Visit: LEFT LOWER LOBE PNEUMONIA,ACUTE HYPOXEMIC Physical Exam Vital Signs: Temp Pulse Resp BP Pulse Ox 98.3 F 60 16 111/33 L 93 12/31/17 07:28 12/31/17 14:00 12/31/17 07:28 12/31/17 07:28 12/31/17 07:28 Intake & Output 12/30/17 12/31/17 01/01/18 05:59 06:59 06:59 Intake Total Output Total Balance Weight General appearance: PRESENT: no acute distress, cooperative Head exam: PRESENT: atraumatic, normocephalic Eye exam: PRESENT: conjunctiva pink, EOMI Mouth exam: PRESENT: moist, tongue midline Respiratory exam: PRESENT: rales - Trace rales at the bilateral bases, unlabored. ABSENT: rhonchi, wheezes Cardiovascular exam: PRESENT: RRR. ABSENT: systolic murmur GI/Abdominal exam: PRESENT: ascites, normal bowel sounds, soft. ABSENT: distended, firm, guarding, tenderness Extremities exam: PRESENT: other - left arm HD fistula, very enlarged Musculoskeletal exam: PRESENT: ambulatory Neurological exam: PRESENT: alert, awake, oriented to person, oriented to place , oriented to situation, CN II-XII grossly intact Psychiatric exam: PRESENT: appropriate affect. ABSENT: anxious Skin exam: PRESENT: dry, warm, other - Right heel with dark uninfected eschar, crack in the transmetatarsal amputation site. No sign of infection. Results Laboratory Results: 12/30/17 06:13 12/30/17 06:13 12/29/17 12/29/17 12/29/17 11:30 11:30 17:00 Creatine Kinase 22 L 25 L CK-MB (CK-2) 1.38 Troponin I 0.084 12/29/17 12/29/17 12/29/17 17:00 23:10 23:10 Creatine Kinase 27 L CK-MB (CK-2) 1.57 1.95 Troponin I 0.071 0.069 Impressions: Chest X-Ray 12/30/17 00:00 IMPRESSION: MILD INTERSTITIAL EDEMA WITH TRACE BILATERAL PLEURAL EFFUSIONS. Assessment & Plan - Diagnosis (1) ESRD (end stage renal disease) on dialysis Is this a current diagnosis for this admission?: Yes Plan: Patient gets dialysis Monday. He will have dialysis here tomorrow. Hopefully will be able to discharge him subsequent to that. He has been seen by the floor waxer here and hopefully tomorrow we can arrange for him to see that physician regularly. (2) Pneumonia Qualifiers: Pneumonia type: due to unspecified organism Laterality: right Lung location: unspecified part of lung Qualified Code(s): J18.9 - Pneumonia, unspecified organism Is this a current diagnosis for this admission?: Yes Plan: Continues to improve, satting well on room air, continue ceftriaxone and doxycycline. Will need to transition ceftriaxone to oral for discharge. (3) Skin abnormality Is this a current diagnosis for this admission?: Yes Plan: Right foot lesions are stable appearing. WIll cont to monitor closely. (4) Hypertension Is this a current diagnosis for this admission?: Yes Plan: Doing well on the medications that he had been off of for a month but that I have restarted. His blood pressure is stable. (5) Cirrhosis Is this a current diagnosis for this admission?: Yes (6) Diabetes 1.5, managed as type 2 Is this a current diagnosis for this admission?: Yes Plan: Blood sugars have been running 150s to just over 200. Patient states this is normal for him and if there are any lower he feels bad. When he was on hemodialysis diabetic diet he was not eating and insisted that he eat a regular diet. We will continue to try to work with this patient to improve his blood glucose levels and we will continue to educate him about the importance of a hemodialysis and diabetic diet. (7) Oxygen dependent Is this a current diagnosis for this admission?: Yes Plan: Resolved. Patient no longer hypoxemic. - Time Time Spent with patient: 25-34 minutes Medications reviewed and adjusted accordingly: Yes - Inpatient Certification Based on my medical assessment, after consideration of the patient's comorbidities, presenting symptoms, or acuity I expect that the services needed warrant INPATIENT care.: Yes I certify that my determination is in accordance with my understanding of Medicare's requirements for reasonable and necessary INPATIENT services [42 CFR 412.3e].: Yes Medical Necessity: Significant Comorbidiites Make Outpatient Treatment Too Risky
[2017-12-31 17:37] LABS: HEMATOCRIT 31.7 % (37.9-51.0); HEMOGLOBIN 10.8 g/dL (13.5-17.0); MEAN CORPUSCULAR HEMOGLOBIN 31.9 pg (27.0-33.4); MEAN CORPUSCULAR HGB CONC 33.9 g/dL (32.0-36.0); MEAN CORPUSCULAR VOLUME 94 fl (80-97); RED BLOOD COUNT 3.38 10^6/uL (4.35-5.55); RED CELL DISTRIBUTION WIDTH 15.9 % (11.5-14.0); WHITE BLOOD COUNT 4.9 10^3/uL (4.0-10.5)
[2017-12-31 17:52] LABS: ANION GAP 16 (5-19); BLOOD UREA NITROGEN 45 mg/dL (7-20); CALCIUM 8.4 mg/dL (8.4-10.2); CARBON DIOXIDE 24 mmol/L (22-30); CHLORIDE 97 mmol/L (98-107); GLUCOSE 178 mg/dL (75-110); POTASSIUM 4.7 mmol/L (3.6-5.0); SODIUM 136.7 mmol/L (137-145)
[2017-12-31 18:00] LABS: PLATELET COUNT 65 10^3/uL (150-450)
[2017-12-31] MEDS: CEFTRIAXONE SODIUM 1,000 MG in NORMAL SALINE 100 ML IV SCH (18:28)
[2017-12-31] MEDS: ATORVASTATIN CALCIUM 10 MG TABLET PO SCH (22:41)
[2017-12-31] MEDS: GABAPENTIN 100 MG CAPSULE PO SCH (22:41)
[2018-01-01 06:00] LABS: ABSOLUTE EOSINOPHILS # (AUTO) 0.1 10^3/uL (0.0-0.6); ABSOLUTE LYMPHOCYTES (AUTO) 0.8 10^3/uL (0.5-4.7); ABSOLUTE MONOCYTES (AUTO) 0.5 10^3/uL (0.1-1.4); ABSOLUTE NEUT (AUTO) 3.4 10^3/uL (1.7-8.2); EOSINOPHILS % (AUTO) 2.1 % (0-6); HEMATOCRIT 29.8 % (37.9-51.0); HEMOGLOBIN 10.1 g/dL (13.5-17.0); LYMPHOCYTES % (AUTO) 15.8 % (13-45); MEAN CORPUSCULAR HEMOGLOBIN 31.8 pg (27.0-33.4); MEAN CORPUSCULAR HGB CONC 33.9 g/dL (32.0-36.0); MEAN CORPUSCULAR VOLUME 94 fl (80-97); MONOCYTES % (AUTO) 9.9 % (3-13); RED BLOOD COUNT 3.17 10^6/uL (4.35-5.55); RED CELL DISTRIBUTION WIDTH 15.4 % (11.5-14.0); SEGMENTED NEUTROPHILS % (AUTO) 71.2 % (42-78); TOTAL CELLS COUNTED % (AUTO) 100 %; WHITE BLOOD COUNT 4.8 10^3/uL (4.0-10.5)
[2018-01-01 06:19] LABS: ANION GAP 15 (5-19); BLOOD UREA NITROGEN 46 mg/dL (7-20); CALCIUM 7.8 mg/dL (8.4-10.2); CARBON DIOXIDE 24 mmol/L (22-30); CHLORIDE 97 mmol/L (98-107); GLUCOSE 104 mg/dL (75-110); POTASSIUM 4.6 mmol/L (3.6-5.0); SODIUM 136.4 mmol/L (137-145)
[2018-01-01 06:27] LABS: PLATELET COUNT 62 10^3/uL (150-450)
[2018-01-01] MEDS: LANSOPRAZOLE 15 MG TAB.RAP.DR PO SCH (06:56)
[2018-01-01] MEDS: INSULIN LISPRO 100 UNIT/ML 3 ML VIAL SUBCUT SCH ×3 (07:25→17:28)
[2018-01-01] MEDS ORDERED: EPOETIN ALFA INJ 20000 UNIT/1 ML VIAL (RENAL) IV PRN (07:45)
[2018-01-01] MEDS ORDERED: EPOETIN ALFA 2,000 UNIT in SYRINGE, DISPOSABLE, 1 EACH IV PRN (08:13)
[2018-01-01] MEDS: PYRIDOXINE HCL 50 MG TABLET PO SCH (12:44)
[2018-01-01] MEDS: ASPIRIN 325 MG TABLET, ENT COATED PO SCH (12:45)
[2018-01-01] MEDS: GUAIFENESIN 600 MG TABLET.SA PO SCH (12:45)
[2018-01-01] MEDS: MULTIVITAMIN TABLET PO SCH (12:45)
[2018-01-01] MEDS: CITALOPRAM HYDROBROMIDE 20 MG TABLET PO SCH (12:45)
[2018-01-01] MEDS: DOXYCYCLINE HYCLATE 100 MG TABLET PO SCH (12:45)
[2018-01-01] MEDS: TIOTROPIUM BROMIDE DPI 5 CAP/KIT (18 MCG/CAP) IH SCH (12:46)
[2018-01-01] MEDS: PENTOXIFYLLINE 400 MG TABLET.SA PO SCH (12:48)
[2018-01-01] MEDS: AMLODIPINE BESYLATE 10 MG TABLET PO SCH (13:00)
--- NOTE | 2018-01-01 15:31 | PDOC PROGRESS REPORT ---
Subjective Progress Note for:: 01/01/18 Reason For Visit: Seen on HD today. Undergoing dialysis without any issues. Has been having daily 1-2 bm though n ot loose. Appetite is fair. He denies any more dyspnea. NO c/o chest pains, abdominal pains, fever or chills. Labs and meds were reviewed with him. Orders were discussed with the treating HD RN. Physical Exam Vital Signs: Temp Pulse Resp BP Pulse Ox 97.6 F 68 18 138/65 H 97 01/01/18 07:28 01/01/18 14:00 01/01/18 07:28 01/01/18 07:28 01/01/18 07:28 Intake & Output 12/31/17 01/01/18 01/02/18 06:59 06:59 06:59 Intake Total 960 Balance 960 Weight 87.4 kg General appearance: PRESENT: no acute distress Respiratory exam: PRESENT: clear to auscultation gustavo. ABSENT: crackles, rhonchi Cardiovascular exam: PRESENT: +S1, +S2, systolic murmur GI/Abdominal exam: PRESENT: ascites - has improved., distended, normal bowel sounds, organomegaly, soft. ABSENT: tenderness Neurological exam: PRESENT: alert, awake, oriented to person, oriented to place Skin exam: ABSENT: cyanosis, erythema, mottled Results Laboratory Results: 01/01/18 05:07 01/01/18 05:07 12/31/17 12/31/17 01/01/18 16:25 16:25 05:07 WBC 4.9 4.8 RBC 3.38 L 3.17 L Hgb 10.8 L 10.1 L Hct 31.7 L 29.8 L MCV 94 94 MCH 31.9 31.8 MCHC 33.9 33.9 RDW 15.9 H 15.4 H Plt Count 65 L 62 L Seg Neutrophils % 71.2 Lymphocytes % 15.8 Monocytes % 9.9 Eosinophils % 2.1 Basophils % 1.0 Absolute Neutrophils 3.4 Absolute Lymphocytes 0.8 Absolute Monocytes 0.5 Absolute Eosinophils 0.1 Absolute Basophils 0.0 Sodium 136.7 L Potassium 4.7 Chloride 97 L Carbon Dioxide 24 Anion Gap 16 BUN 45 H Creatinine 7.03 H Est GFR ( Amer) 10 L Est GFR (Non-Af Amer) 8 L Glucose 178 H Calcium 8.4 01/01/18 05:07 WBC RBC Hgb Hct MCV MCH MCHC RDW Plt Count Seg Neutrophils % Lymphocytes % Monocytes % Eosinophils % Basophils % Absolute Neutrophils Absolute Lymphocytes Absolute Monocytes Absolute Eosinophils Absolute Basophils Sodium 136.4 L Potassium 4.6 Chloride 97 L Carbon Dioxide 24 Anion Gap 15 BUN 46 H Creatinine 6.92 H Est GFR ( Amer) 10 L Est GFR (Non-Af Amer) 8 L Glucose 104 Calcium 7.8 L 12/29/17 12/29/17 12/29/17 11:30 11:30 17:00 Creatine Kinase 22 L 25 L CK-MB (CK-2) 1.38 Troponin I 0.084 12/29/17 12/29/17 12/29/17 17:00 23:10 23:10 Creatine Kinase 27 L CK-MB (CK-2) 1.57 1.95 Troponin I 0.071 0.069 Impressions: Chest X-Ray 12/30/17 00:00 IMPRESSION: MILD INTERSTITIAL EDEMA WITH TRACE BILATERAL PLEURAL EFFUSIONS. Assessment & Plan - Diagnosis (1) ESRD (end stage renal disease) on dialysis Is this a current diagnosis for this admission?: Yes Plan: Seen on HD. Its being supervised to ensure a safe and smooth procedure. Undergoing HD without any issues. VS stable.Orders were discussed with treating RN. Plan to remove 2 L as tolerated. (2) Cirrhosis Is this a current diagnosis for this admission?: Yes Plan: Cryptogenic. Has Portal hypertension with recurrent and persistent ascites for which he has been having paracentesis q 2 weekly over the last 2 -3 months now.Will need to have pcp and GI closely watching him. Feeling better after the recent paracentesis in hospital. Adv the need for adequate bowel movements as he was constipated for the last 2 months or so. (3) Diabetes 1.5, managed as type 2 Is this a current diagnosis for this admission?: Yes Plan: Adv on need for tight sugar control. (4) Pneumonia Qualifiers: Pneumonia type: due to unspecified organism Laterality: right Lung location: unspecified part of lung Qualified Code(s): J18.9 - Pneumonia, unspecified organism Is this a current diagnosis for this admission?: Yes Plan: Doing well on antibiotics.
[2018-01-01] MEDS: CINACALCET HCL 30 MG TABLET PO SCH (17:37)
[2018-01-01] MEDS: INSULIN LISPRO 100 UNIT/ML 3 ML VIAL SUBCUT PRN (17:37)
[2018-01-01] MEDS: FAMOTIDINE 20 MG TABLET PO SCH (17:37)
[2018-01-01] MEDS ORDERED: CEFUROXIME 500 MG TABLET PO SCH (17:45)
[2018-01-01 18:17] VITALS: BP 104/40
--- NOTE | 2018-01-01 23:44 | PDOC DISCHARGE SUMMARY ---
General - Admit/Disc Date/PCP Admission Date/Primary Care Provider: 12/29/17 09:39 NO LOCALMD Discharge Date: 01/01/18 - Discharge Diagnosis (1) ESRD (end stage renal disease) on dialysis Is this a current diagnosis for this admission?: Yes Summary: Patient has just moved to the area. He is now established with a local [facility] clinic and with Dr. Bonilla. He is stable and at baseline from this perspective. (2) Pneumonia Is this a current diagnosis for this admission?: Yes Summary: Patient had a right lung pneumonia for which she was admitted. He is discharged on several more days of third-generation cephalosporin and doxycycline. (3) Skin abnormality Is this a current diagnosis for this admission?: Yes Summary: Patient has had a right transmetatarsal amputation which is well-healed though now he has a crack in the right foot over the transmetatarsal amputation site. It is uninfected. He has a black eschar over the right heel. He and his family are aware of these lesions. He will show his primary care doctor in the next few days. No sign of infection. (4) Hypertension Is this a current diagnosis for this admission?: Yes Summary: Patient was admitted to the hospital he told me that he had stopped all of his medications including his antihypertensives, and that he had not been taking them for a month. He said his medications made him nauseated. I started him back on all of his medications. He was not having nausea. His blood pressure was well controlled. I advised him to take his medications as prescribed. (5) Cirrhosis Is this a current diagnosis for this admission?: Yes Summary: Has cryptogenic cirrhosis. He was followed by gastroenterology when he was living in [place]. He is new to the [facility] and will talk to his primary care doctor about an appointment with a soil technologist. Patient was getting paracenteses every 2 weeks secondary to rapid ascites accumulation. He knows that he needs to arrange for these procedures as soon as possible. (6) Diabetes 1.5, managed as type 2 Is this a current diagnosis for this admission?: Yes Summary: Patient is discharged on his home diabetic regimen. (7) Oxygen dependent Is this a current diagnosis for this admission?: Yes Summary: As has resolved. Patient is not being discharged on oxygen. - Additional Information Resuscitation Status: Full Code - Again, patient is new to the area. He has the name of her primary care doctor that he will call tomorrow. Through that Dr. hall will be set up with neurology and paracentesis plan. His family has his medical records from his doctors in [place]. He is all ready met Dr. Bonilla and is hooked up with [facility] for Monday dialysis Discharge Diet: As Tolerated Discharge Activity: Activity As Tolerated Prescriptions: Doxycycline Hyclate [Vibramycin 100 mg Tablet] 100 mg PO Q12 5 Days #10 tablet Home Medications: Amlodipine Besylate [Norvasc 10 mg Tablet] 10 mg PO DAILY 12/29/17 Aspirin [Ecotrin 325 mg EC Tablet] 325 mg PO DAILY 12/29/17 Atorvastatin Calcium [Lipitor 10 mg Tablet] 10 mg PO QHS 12/29/17 Cinacalcet HCl [Sensipar 30 mg Tablet] 30 mg PO WSUPPER 12/29/17 Citalopram Hydrobromide [Celexa 20 mg Tablet] 40 mg PO DAILY 12/29/17 Clindamycin Phosphate [Clindamax Lotion] 1 applic TOP BID 12/29/17 Ferric Citrate [Auryxia] 420 mg PO MEALS 12/29/17 Gabapentin [Neurontin 100 mg Capsule] 100 mg PO QHS 12/29/17 Glimepiride [Amaryl] 2 mg PO DAILY 12/29/17 Multivitamin [Tab-A-Jose (Multiple Vitamin) Tablet] 1 tab PO DAILY 12/29/17 Omeprazole 20 mg PO DAILY 12/29/17 Pentoxifylline [Trental 400 mg Tablet.sa] 400 mg PO DAILY 12/29/17 Pyridoxine HCl (Vitamin B6) [Vitamin B-6] 100 mg PO DAILY 12/29/17 Ranitidine HCl [Zantac] 300 mg PO ACSUPPER 12/29/17 Tiotropium Fedora [Spiriva Handihaler 5 Cap/Kit (18 Mcg/Cap)] 2 puff IH DAILY 12/29/17 Clonidine HCl [Catapres 0.1 mg Tablet] 0.1 mg PO Q8HP PRN tablet 01/01/18 Doxycycline Hyclate [Vibramycin 100 mg Tablet] 100 mg PO Q12 5 Days #10 tablet 01/01/18 History of Present Illness Patient complains of: Abdominal pain distention and dyspnea History of Present Illness: This is a 62-year-old man who came to the ER with family secondary to abdominal pain and swelling along with shortness of breath. He has recently moved to this local area from [place], has moved here to be closer to family. He arrived into the local area within the past week and does not have a new doctor , has not set up with a new dialysis center. He tells us that regarding his abdominal distention he has cirrhosis of unknown etiology and receives regular paracenteses. He also tells us that he has diabetes and end-stage kidney disease for which he gets dialysis on Monday. He is found to have a pneumonia on chest x-ray. In the ER paracentesis was performed. He tolerated that procedure well and his abdominal situation is improved. He has gone to dialysis today from the ER. Secondary to pneumonia the patient is being admitted to the hospitalist service. Physical Exam Vital Signs: Temp Pulse Resp BP Pulse Ox 98.4 F 65 16 104/40 L 93 01/01/18 18:10 01/01/18 18:10 01/01/18 18:10 01/01/18 18:10 01/01/18 18:10 Intake & Output 12/31/17 01/01/18 01/02/18 06:59 06:59 06:59 Intake Total 960 384 Balance 960 384 Weight 87.4 kg General appearance: PRESENT: no acute distress, cooperative Head exam: PRESENT: atraumatic, normocephalic Eye exam: PRESENT: conjunctiva pink Ear exam: PRESENT: normal external ear exam Respiratory exam: PRESENT: clear to auscultation gustavo, unlabored. ABSENT: rales , rhonchi, wheezes Cardiovascular exam: PRESENT: RRR. ABSENT: systolic murmur Pulses: PRESENT: normal radial pulses GI/Abdominal exam: PRESENT: ascites, distended, normal bowel sounds, soft. ABSENT: tenderness Musculoskeletal exam: PRESENT: ambulatory Neurological exam: PRESENT: alert, awake, oriented to person, oriented to place , oriented to situation, CN II-XII grossly intact Psychiatric exam: PRESENT: appropriate affect. ABSENT: anxious Skin exam: PRESENT: dry, warm, other - Crack and black eschar on right foot, no sign of infection. He knows to show these areas to his primary care doctor. He also understands the importance of diabetic foot care. Results Laboratory Results: 01/01/18 05:07 01/01/18 05:07 01/01/18 01/01/18 05:07 05:07 WBC 4.8 RBC 3.17 L Hgb 10.1 L Hct 29.8 L MCV 94 MCH 31.8 MCHC 33.9 RDW 15.4 H Plt Count 62 L Seg Neutrophils % 71.2 Lymphocytes % 15.8 Monocytes % 9.9 Eosinophils % 2.1 Basophils % 1.0 Absolute Neutrophils 3.4 Absolute Lymphocytes 0.8 Absolute Monocytes 0.5 Absolute Eosinophils 0.1 Absolute Basophils 0.0 Sodium 136.4 L Potassium 4.6 Chloride 97 L Carbon Dioxide 24 Anion Gap 15 BUN 46 H Creatinine 6.92 H Est GFR ( Amer) 10 L Est GFR (Non-Af Amer) 8 L Glucose 104 Calcium 7.8 L 12/29/17 12/29/17 12/29/17 11:30 11:30 17:00 Creatine Kinase 22 L 25 L CK-MB (CK-2) 1.38 Troponin I 0.084 12/29/17 12/29/17 12/29/17 17:00 23:10 23:10 Creatine Kinase 27 L CK-MB (CK-2) 1.57 1.95 Troponin I 0.071 0.069 Impressions: Chest X-Ray 12/30/17 00:00 IMPRESSION: MILD INTERSTITIAL EDEMA WITH TRACE BILATERAL PLEURAL EFFUSIONS. Qualifiers - * PATEINT BEING DISCHARGED WITH ANY OF THE FOLLOWING DIAGNOSIS?: No
== END 2018-01-01 18:57 | disposition home or self-care (01) | DRG 193 ==
LOC: ER 21:40 → EH 12-29 09:39 → UNDOADMIN 12-29 09:39 → 4N 12-29 12:13
PROVIDERS: ADMIT Emergency Medicine; ATTEND Emergency Medicine
PROC: 0W9G3ZZ Drainage of Peritoneal Cavity, Percutaneous Approach (ICD-10-PCS; principal; 2017-12-29)
PROC: 5A1D70Z Performance of Urinary Filtration, Intermittent, Less than 6 Hours Per Day (ICD-10-PCS; 2018-01-01)
DX: J18.9 Pneumonia, unspecified organism (principal); N18.6 End stage renal disease; I12.0 Hypertensive chronic kidney disease with stage 5 chronic kidney disease or end stage renal disease; K76.6 Portal hypertension; R18.8 Other ascites; I13.2 Hypertensive heart and chronic kidney disease with heart failure and with stage 5 chronic kidney disease, or end stage renal disease; I50.20 Unspecified systolic (congestive) heart failure; E11.22 Type 2 diabetes mellitus with diabetic chronic kidney disease; K74.69 Other cirrhosis of liver; Z89.421 Acquired absence of other right toe(s); Z99.2 Dependence on renal dialysis; Z86.73 Personal history of transient ischemic attack (TIA), and cerebral infarction without residual deficits; Z79.899 Other long term (current) drug therapy; Z83.3 Family history of diabetes mellitus; Z84.1 Family history of disorders of kidney and ureter; D63.1 Anemia in chronic kidney disease; K21.9 Gastro-esophageal reflux disease without esophagitis; E11.319 Type 2 diabetes mellitus with unspecified diabetic retinopathy without macular edema; Z95.0 Presence of cardiac pacemaker; Z87.01 Personal history of pneumonia (recurrent); T46.5X6A Underdosing of other antihypertensive drugs, initial encounter; Z91.128 Patient's intentional underdosing of medication regimen for other reason
CPT/HCPCS: 36415; 71045; 71046; 80048; 80053; 82550; 82553; 82803; 82962; 83605; 83690; 84100; 84439; 84443; 84484; 85025; 85027; 85610; 85730; 87040; 87070; 87075; 87205; 89050; 93005; 93010; 96365; 96368; 99285; J0692; J0696; J1815; J3370; J3490; Q4081

== ENCOUNTER → 2018-01-11 | Outpatient (CLI) | payer MEDICARE ==
--- NOTE | 2018-01-11 16:09 | RADIOLOGY REPORT (SQ) ---
EXAM DESCRIPTION: FOOT RIGHT COMPLETE COMPLETED DATE/TIME: 01/11/2018 12:56 pm REASON FOR STUDY: NON-PRS CHR ULCER OF RIGHT HEEL AND MIDFT W FAT LAYER EXPOS L97.412 NON-PRS CHR U LCER OF RIGHT HEEL AND MIDFT W FAT LAYE COMPARISON: None. NUMBER OF VIEWS: Three views. TECHNIQUE: AP, lateral and oblique radiographic images acquired of the right foot. LIMITATIONS: None. FINDINGS: Osteoporotic Post transmetatarsal amputation of the forefoot. No soft tissue ulcerations over the anterior right foot. There is a dorsal calcaneal soft tissue ulcer with bandage. No erosions or periostitis along the leonard scotty aspect of the calcaneus. Old bimalleolar fracture stabilized with hardware. Diffuse soft tissue arterial vascular calcificati ons. IMPRESSION: Dorsal calcaneal soft tissue ulcer with bandage. No erosions or periostitis along the d orsal aspect of the bony calcaneus TECHNICAL DOCUMENTATION: JOB ID: [id number] [employer]- All Rights Reserved Reading location - IP/workstation name: [email or web address]
== END ==
LOC: OD 12:44
PROVIDERS: ATTEND Preventive Medicine Undersea and Hyperbaric Medicine
DX: L97.412 Non-pressure chronic ulcer of right heel and midfoot with fat layer exposed (principal)

== ENCOUNTER → 2018-01-16 | Outpatient (CLI) | payer MEDICARE ==
--- NOTE | 2018-01-16 13:01 | RADIOLOGY REPORT (SQ) ---
EXAM DESCRIPTION: U/S ABDOMEN COMPLETE W/O DOP COMPLETED DATE/TIME: 01/16/2018 11:44 am REASON FOR STUDY: CIRRHOSIS (K74.69), OTHER ASCITES (R18.8), ABN LFT (R94.5) K74.69 OTHER CIRRHOSIS OF LIVER R18.8 OTHER ASCITES R94.5 ABNORMAL RESULTS OF LIVER FUNCTION STUDIES COMPARISON: None. TECHNIQUE: Dynamic and static grayscale images acquired of the abdomen and recorded on PACS. Additio nal selected color Doppler and spectral images recorded. LIMITATIONS: None. FINDINGS: PANCREAS: No masses. Visualized pancreatic duct normal caliber. LIVER: 20.1 cm. Sub capsular nodularity. LIVER VASCULATURE: Normal directional flow of the main portal vein and hepatic veins. GALLBLADDER: No stones. Normal wall thickness. No pericholecystic fluid. ULTRASOUND-DETECTED BACK'S SIGN: Negative. INTRAHEPATIC DUCTS AND COMMON DUCT: CBD and intrahepatic ducts normal caliber. No filling defects. INFERIOR VENA CAVA: Normal flow. AORTA: No aneurysm. RIGHT KIDNEY: 8.0 cm. Cortical thinning. No solid or suspicious masses. No hydronephrosis. S mall renal calculi. LEFT KIDNEY: 7.8 cm. Cortical thinning. No solid or suspicious masses. No hydronephrosis. Sm all renal calculi. SPLEEN: 14.3 cm. PERITONEAL AND PLEURAL SPACES: Moderate ascites. OTHER: No other significant finding. IMPRESSION: Hepatosplenomegaly. Moderate ascites. TECHNICAL DOCUMENTATION: JOB ID: [id number] [employer]- All Rights Reserved Reading location - IP/workstation name: [email or web address]
--- NOTE | 2018-01-16 15:16 | XCELERA REPORT ---
[address] [address] Lower Extremity Arterial Evaluation Name: BHUPENDRA JUAREZ Age: 62 yrs Gender: Male : 1955 Patient Status: Outpatient Patient Location: [facility] Study Date: 01/16/2018 01:20 PM Procedure: A color flow and duplex scan of the lower extremity arteries was performed bilaterally with velocity and waveform anaylsis. Reason For Study: ULCER Ordering Physician: TRAMAINE BAXTER Performed By: Maximilian Jones Measurements and Calculations Right Left ADVERTISER PSV 106.2 147.7 cm/sec Prox PFA PSV -101.8 -93.0 cm/sec Prox SFA PSV 89.3 101.2 cm/sec Mid SFA PSV -78.6 -114.4 cm/sec Dist SFA PSV -75.6 -64.2 cm/sec Prox Pop A PSV 67.8 87.9 cm/sec Dist LAKE PSV 51.5 56.9 cm/sec Dist BUTCHER HEAD PSV 55.9 40.5 cm/sec Gurwinder Pedis PSV 43.7 52.7 cm/sec Right Side Arterial Evaluation Normal velocity and triphasic waveforms noted from the Common Femoral artery to the Popliteal. Biphasic with preserved velocities in the infrageniculate vessels. 0-19% stenosis at the infrageniculate vessels. Ankle Brachial index not obtainable due to arm fistula presence. Left Side Arterial Evaluation Normal velocity and triphasic waveforms noted in the Common Femoral artery. Biphasic with preserved velocities From Popliteal to the infrageniculate vessels. Biphasic in the Deep Femoral artery. 0-19% stenosis at the Femoral artery. Ankle Brachial index not obtainable due to arm fistula presence. Interpretation Summary Mild hemodynamically significant lesions in the bilateral lower extremities, on duplex imaging, at rest. : TRAMAINE BAXTER > Reuben Munoz
== END ==
LOC: RAD 09:42
PROVIDERS: ATTEND Internal Medicine Gastroenterology
DX: K74.69 Other cirrhosis of liver (principal); R18.8 Other ascites; R94.5 Abnormal results of liver function studies; L97.412 Non-pressure chronic ulcer of right heel and midfoot with fat layer exposed
CPT/HCPCS: 76700; 93925

== ENCOUNTER 2018-01-19 13:45 | Emergency (ER) | payer MEDICARE ==
--- NOTE | 2018-01-19 14:58 | ER Document Report ---
ED Medical Screen (RME) - General Chief Complaint: Shortness Of Breath Stated Complaint: SHORNTESS OF BREATH Time Seen by Provider: 01/19/18 14:46 Mode of Arrival: Ambulatory Information source: Patient Notes: 62-year-old diabetic male who receives dialysis Fridays presents with with concerns for altered mental status blood sugar was notes were 48 at home. symptoms intermittnet over the past week, patient was taken off glimeperide a week ago Patient missed dialysis today I have greeted and performed a rapid initial assessment of this patient. A comprehensive ED assessment and evaluation of the patient, analysis of test results and completion of the medical decision making process will be conducted by additional ED providers. PHYSICAL EXAMINATION: GENERAL: Well-appearing, well-nourished and in no acute distress. HEAD: Atraumatic, normocephalic. EYES: Pupils equal round extraocular movements intact, conjunctiva are normal. ENT: Nares patent NECK: Normal range of motion LUNGS: No respiratory distress Musculoskeletal: Normal range of motion NEUROLOGICAL: Normal speech, normal gait. PSYCH: Normal mood, normal affect. SKIN: bilateral fistulas arms TRAVEL OUTSIDE OF THE U.S. IN LAST 30 DAYS: No - Related Data Allergies/Adverse Reactions: adhesive Allergy (Verified 01/19/18 14:05) No Known Drug Allergies Allergy (Verified 01/19/18 14:04) Past Medical History - Social History Chew tobacco use (# tins/day): No Frequency of alcohol use: None Drug Abuse: None - Past Medical History Cardiac Medical History: Reports: Hx Coronary Artery Disease, Hx Hypertension Endocrine Medical History: Reports: Hx Diabetes Mellitus Type 2 Renal/ Medical History: Reports: Hx End Stage Renal Disease, Hx Hemodialysis. Denies: Hx Peritoneal Dialysis GI Medical History: Reports: Hx Cirrhosis - - Cryptogenic, Hx Liver Failure Psychiatric Medical History: Denies: Hx Depression - Immunizations Hx Diphtheria, Pertussis, Tetanus Vaccination: Yes History of Influenza Vaccine for 07/2017 - 12/2017 Season: Yes Influenza Administration Date for 07/2017 - 12/2017 Season: 07/23/17 Physical Exam - Vital signs Vitals: Temp Pulse Resp BP Pulse Ox 98.1 F 58 L 18 121/65 96 01/19/18 14:08 01/19/18 14:08 01/19/18 14:08 01/19/18 14:08 01/19/18 14:08 Course - Vital Signs Vital signs: Temp Pulse Resp BP Pulse Ox 98.1 F 58 L 18 121/65 96 01/19/18 14:08 01/19/18 14:08 01/19/18 14:08 01/19/18 14:08 01/19/18 14:08
--- NOTE | 2018-01-19 15:32 | RADIOLOGY REPORT (SQ) ---
EXAM DESCRIPTION: CT HEAD WITHOUT COMPLETED DATE/TIME: 01/19/2018 3:15 pm REASON FOR STUDY: altered COMPARISON: None. TECHNIQUE: Axial images acquired through the brain without intravenous contrast. Images reviewed wi th bone, brain and subdural windows. Additional sagittal and coronal reconstructions were generated. Images stored on PACS. All CT scanners at this facility use dose modulation, iterative reconstruction, and/or weight based d osing when appropriate to reduce radiation dose to as low as reasonably achievable (ALARA). [facility]: Dose Right [facility]: CareDose [facility]: Dose Right [facility]: Teradose 4D [facility]: Bueeno RADIATION DOSE: CT Rad equipment meets quality standard of care and radiation dose reduction techniq ues were employed. CTDIvol: 53.2 mGy. DLP: 1070 mGy-cm. mGy. LIMITATIONS: None. FINDINGS: VENTRICLES: Normal size and contour. CEREBRUM: No masses. No hemorrhage. No midline shift. No evidence for acute infarction. Normal gra y/white matter differentiation. No areas of low density in the white matter. CEREBELLUM: No masses. No hemorrhage. No alteration of density. No evidence for acute infarction. EXTRAAXIAL SPACES: No fluid collections. No masses. ORBITS AND GLOBE: No intra- or extraconal masses. Normal contour of globe without masses. CALVARIUM: No fracture. PARANASAL SINUSES: Trace fluid left maxillary sites. SOFT TISSUES: No mass or hematoma. OTHER: No other significant finding. IMPRESSION: NORMAL BRAIN CT WITHOUT CONTRAST. EVIDENCE OF ACUTE STROKE: NO. COMMENT: Quality ID # [id number]: Final reports with documentation of one or more dose reduction techniques (e.g., Automated exposure control, adjustment of the mA and/or kV according to patient size, use of iterative reconstruction technique) TECHNICAL DOCUMENTATION: JOB ID: [id number] [employer]- All Rights Reserved Reading location - IP/workstation name: [email or web address]
--- NOTE | 2018-01-19 15:33 | RADIOLOGY REPORT (SQ) ---
EXAM DESCRIPTION: CHEST PA/LAT COMPLETED DATE/TIME: 01/19/2018 3:13 pm REASON FOR STUDY: dialysis patient / SOB COMPARISON: 12/30/2017 EXAM PARAMETERS: NUMBER OF VIEWS: two views TECHNIQUE: Digital Frontal and Lateral radiographic views of the chest acquired. RADIATION DOSE: NA LIMITATIONS: none FINDINGS: LUNGS AND PLEURA: Chronic interstitial changes. Unchanged blunting of the left costophren ic angle. MEDIASTINUM AND HILAR STRUCTURES: Stable. HEART AND VASCULAR STRUCTURES: Stable heart size. BONES: No acute findings. HARDWARE: Stable position of pacemaker. OTHER: No other significant finding. IMPRESSION: Stable, chronic changes. TECHNICAL DOCUMENTATION: JOB ID: [id number] [employer]- All Rights Reserved Reading location - IP/workstation name: [email or web address]
[2018-01-19 15:40] LABS: ABSOLUTE BASOPHILS # (AUTO) 0.1 10^3/uL (0.0-0.2); ABSOLUTE EOSINOPHILS # (AUTO) 0.1 10^3/uL (0.0-0.6); ABSOLUTE LYMPHOCYTES (AUTO) 0.5 10^3/uL (0.5-4.7); ABSOLUTE MONOCYTES (AUTO) 0.4 10^3/uL (0.1-1.4); ABSOLUTE NEUT (AUTO) 4.4 10^3/uL (1.7-8.2); EOSINOPHILS % (AUTO) 1.4 % (0-6); HEMATOCRIT 30.7 % (37.9-51.0); HEMOGLOBIN 10.1 g/dL (13.5-17.0); LYMPHOCYTES % (AUTO) 9.7 % (13-45); MEAN CORPUSCULAR HEMOGLOBIN 31.9 pg (27.0-33.4); MEAN CORPUSCULAR VOLUME 97 fl (80-97); MONOCYTES % (AUTO) 7.5 % (3-13); RED BLOOD COUNT 3.17 10^6/uL (4.35-5.55); RED CELL DISTRIBUTION WIDTH 17.4 % (11.5-14.0); SEGMENTED NEUTROPHILS % (AUTO) 80.4 % (42-78); TOTAL CELLS COUNTED % (AUTO) 100 %; WHITE BLOOD COUNT 5.4 10^3/uL (4.0-10.5)
[2018-01-19 15:58] LABS: ALANINE AMINOTRANSFERASE 38 U/L (21-72); ALBUMIN 3.5 g/dL (3.5-5.0); ALKALINE PHOSPHATASE 169 U/L (38-126); ANION GAP 15 (5-19); ASPARTATE AMINO TRANSFERASE 41 U/L (17-59); BILIRUBIN,DIRECT 0.3 mg/dL (0.0-0.4); BILIRUBIN,TOTAL 0.3 mg/dL (0.2-1.3); BLOOD UREA NITROGEN 41 mg/dL (7-20); CALCIUM 8.3 mg/dL (8.4-10.2); CARBON DIOXIDE 26 mmol/L (22-30); CHLORIDE 95 mmol/L (98-107); CREATINE KINASE 92 U/L (55-170); GLUCOSE 60 mg/dL (75-110); POTASSIUM 5.2 mmol/L (3.6-5.0); SODIUM 135.8 mmol/L (137-145)
[2018-01-19 16:01] LABS: PLATELET COUNT 65 10^3/uL (150-450)
[2018-01-19 16:10] LABS: CREATINE KINASE MB 3.66 ng/mL (<4.55)
[2018-01-19] MEDS ORDERED: DEXTROSE 50%-WATER 25 GM/50 ML DISP.SYRIN IV ONE (16:27)
[2018-01-19] MEDS ORDERED: ALBUTEROL SULFATE 0.083% NEB 2.5 MG/3 ML AMPUL NEB ONE (16:30)
[2018-01-19 16:32] LABS: TROPONIN I 0.066 ng/mL
--- NOTE | 2018-01-19 18:42 | ER Document Report ---
ED General <SRINIVASAN FOY - Last Filed: 01/19/18 22:12> - General Mode of Arrival: Ambulatory Information source: Patient TRAVEL OUTSIDE OF THE U.S. IN LAST 30 DAYS: No <KIMBERLY TOLEDO - Last Filed: 01/21/18 08:22> - General Chief Complaint: Shortness Of Breath Stated Complaint: SHORNTESS OF BREATH Time Seen by Provider: 01/19/18 14:46 Notes: Patient is a 62-year-old male with type 2 diabetes, on dialysis for end-stage renal disease Wednesdays and Fridays, history of multiple TIAs, who presents to the ER today for low blood sugar 48 at home about 4 hours prior to arrival. states that he started acting strangely, saying things that did not make sense and then she checked his sugar, it was 48. She states that she tried to give him snacks and food to eat but he would not eat it, throwing it on the floor, shoving it all over his face "like the cookie monster." states that because of this he missed dialysis today. She denies that he has had any sick symptoms, cough, shortness of breath, swelling anywhere. She states that finally when they got to the emergency department he started to act normal again. (KIMBERLY TOLEDO) - Related Data Allergies/Adverse Reactions: adhesive Allergy (Verified 01/19/18 14:05) No Known Drug Allergies Allergy (Verified 01/19/18 14:04) Past Medical History - General Information source: Patient - Social History Smoking Status: Never Smoker Chew tobacco use (# tins/day): No Frequency of alcohol use: None Drug Abuse: None Family History: Hyperlipidemia, Hypertension Patient has suicidal ideation: No Patient has homicidal ideation: No - Past Medical History Cardiac Medical History: Reports: Hx Coronary Artery Disease, Hx Hypercholesterolemia, Hx Hypertension Endocrine Medical History: Reports: Hx Diabetes Mellitus Type 2 Renal/ Medical History: Reports: Hx End Stage Renal Disease, Hx Hemodialysis. Denies: Hx Peritoneal Dialysis GI Medical History: Reports: Hx Cirrhosis - - Cryptogenic, Hx Liver Failure Psychiatric Medical History: Denies: Hx Depression - Immunizations Hx Diphtheria, Pertussis, Tetanus Vaccination: Yes <KIMBERLY TOLEDO - Last Filed: 01/21/18 08:22> Review of Systems - Review of Systems Constitutional: No symptoms reported EENT: No symptoms reported Cardiovascular: No symptoms reported Respiratory: No symptoms reported Gastrointestinal: No symptoms reported Genitourinary: No symptoms reported Male Genitourinary: No symptoms reported Musculoskeletal: No symptoms reported Skin: No symptoms reported Hematologic/Lymphatic: No symptoms reported Neurological/Psychological: See HPI <KIMBERLY TOLEDO - Last Filed: 01/21/18 08:22> Physical Exam <SRINIVASAN FOY - Last Filed: 01/19/18 22:12> <KIMBERLY TOLEDO - Last Filed: 01/21/18 08:22> - Vital signs Vitals: Temp Pulse Resp BP Pulse Ox 98.1 F 58 L 18 121/65 96 01/19/18 14:08 01/19/18 14:08 01/19/18 14:08 01/19/18 14:08 01/19/18 14:08 - Notes Notes: PHYSICAL EXAMINATION: GENERAL: Well-appearing and in no acute distress. HEAD: Atraumatic, normocephalic. EYES: Pupils equal round and reactive to light, extraocular movements intact, sclera anicteric, conjunctiva are normal. NECK: Normal range of motion, supple without lymphadenopathy LUNGS: CTAB and equal. No wheezes rales or rhonchi. HEART: Regular rate and rhythm without murmurs ABDOMEN: Soft, no tenderness. No guarding, no rebound BACK: no vertebral tenderness, normal ROM GI/: no CVA tenderness EXTREMITIES: Normal range of motion, no pitting edema. No cyanosis. NEUROLOGICAL: Cranial nerves grossly intact. Normal sensory/motor exams. PSYCH: Normal mood, normal affect. SKIN: Warm, Dry, normal turgor, no rashes or lesions noted (KIMBERLY TOLEDO) Course - Laboratory Result Diagrams: 01/19/18 15:18 01/19/18 18:15 <SRINIVASAN FOY - Last Filed: 01/19/18 22:12> - Laboratory Result Diagrams: 01/19/18 15:18 01/19/18 18:15 <KIMBERLY TOLEDO - Last Filed: 01/21/18 08:22> - Re-evaluation Re-evalutation: 01/19/18 18:40 CT negative for any acute pathology, chest x-ray negative for any acute pathology, no fluid overload, potassium is 5.2, creatinine is 6.99 which seems to be his norm. Patient's blood sugar on arrival was 60. Patient was given an amp of dextrose and it came up to 90, awaiting repeat lab work at this time to check on potassium after albuterol was also given. Patient does not make urine. Diet ordered, patient to eat and then recheck sugar. 01/21/18 08:21 Patient ate a meal here in the emergency department that we ordered for him and his sugar came up to 100. Patient advised to eat regularly, even carbohydrates and to follow-up with his primary care provider. states that they finally are able to make an appointment with endocrinology since getting their insurance card in the mail and she will call first thing next business day. Potassium down to 5.0. Patient to dialyze in 2 days. (KIMBERLY TOLEDO) - Vital Signs Vital signs: Temp Pulse Resp BP Pulse Ox 98.1 F 58 L 20 126/58 H 93 01/19/18 14:08 01/19/18 14:08 01/19/18 22:23 01/19/18 22:23 01/19/18 22:23 - Laboratory Laboratory results interpreted by me: 01/19/18 01/19/18 01/19/18 15:18 15:18 18:15 RBC 3.17 L Hgb 10.1 L Hct 30.7 L RDW 17.4 H Plt Count 65 L Seg Neutrophils % 80.4 H Lymphocytes % 9.7 L Sodium 135.8 L 134.3 L Potassium 5.2 H Chloride 95 L 96 L BUN 41 H 45 H Creatinine 6.99 H 6.83 H Est GFR ( Amer) 10 L 10 L Est GFR (Non-Af Amer) 8 L 8 L Glucose 60 L POC Glucose Calcium 8.3 L 8.0 L Alkaline Phosphatase 169 H 01/19/18 20:57 RBC Hgb Hct RDW Plt Count Seg Neutrophils % Lymphocytes % Sodium Potassium Chloride BUN Creatinine Est GFR ( Amer) Est GFR (Non-Af Amer) Glucose POC Glucose 63 L Calcium Alkaline Phosphatase Discharge <SRINIVASAN FOY - Last Filed: 01/19/18 22:12> <KIMBERLY TOLEDO - Last Filed: 01/21/18 08:22> - Discharge Clinical Impression: Diabetes 1.5, managed as type 2, ESRD (end stage renal disease) on dialysis, Hypoglycemia Condition: Stable Disposition: HOME, SELF-CARE Instructions: Hypoglycemia ([facility]) Additional Instructions: Please follow up with the physician listed on your discharge paperwork Please discontinue your home glimerpiride (Amaryl). this medication can take a long time to leave your system and subsequently cause you to have low sugars. Forms: Parent Work Note, Return to Work Referrals: UGO SHAW PA-C [Primary Care Provider] - Follow up as needed PARTH SONG MD [ACTIVE STAFF] - Follow up in 3-5 days
--- NOTE | 2018-01-19 18:44 | EKG REPORT ---
SEVERITY:- ABNORMAL ECG - ATRIAL-PACED COMPLEXES RBBB AND LAFB : Confirmed by: Abdirahman Santos MD 19-Jan-2018 18:43:02
[2018-01-19 18:55] LABS: ANION GAP 13 (5-19); BLOOD UREA NITROGEN 45 mg/dL (7-20); CARBON DIOXIDE 25 mmol/L (22-30); CHLORIDE 96 mmol/L (98-107); GLUCOSE 88 mg/dL (75-110); SODIUM 134.3 mmol/L (137-145)
[2018-01-19 22:49] VITALS: BP 126/58
== END 2018-01-19 22:59 | disposition home or self-care (01) ==
LOC: ER 13:45
DX: E11.649 Type 2 diabetes mellitus with hypoglycemia without coma (principal); E11.22 Type 2 diabetes mellitus with diabetic chronic kidney disease; I12.0 Hypertensive chronic kidney disease with stage 5 chronic kidney disease or end stage renal disease; N18.6 End stage renal disease; Z99.2 Dependence on renal dialysis; I25.10 Atherosclerotic heart disease of native coronary artery without angina pectoris
CPT/HCPCS: 93005; 94640; 99285; 96374; 36415; 82553; 82962; 82550; 85025; 80048; 80053; 84484; 71046; 70450; 93010; J3490; A9270

== ENCOUNTER 2018-01-23 07:22 | Day surgery (SDC) | payer MEDICARE, MEDICAID ==
[2018-01-23 08:24] LABS: HEMATOCRIT 30.1 % (37.9-51.0); HEMOGLOBIN 9.9 g/dL (13.5-17.0); MEAN CORPUSCULAR HEMOGLOBIN 31.9 pg (27.0-33.4); MEAN CORPUSCULAR HGB CONC 32.9 g/dL (32.0-36.0); MEAN CORPUSCULAR VOLUME 97 fl (80-97); RED CELL DISTRIBUTION WIDTH 16.9 % (11.5-14.0); WHITE BLOOD COUNT 4.2 10^3/uL (4.0-10.5)
[2018-01-23 08:28] LABS: INTERNATIONAL RATION (INR) 1.04; PARTIAL THROMBOPLASTIN TIME 35.5 SEC (23.5-35.8); PROTHROMBIN TIME 14.3 SEC (11.4-15.4)
[2018-01-23 08:31] LABS: BLOOD UREA NITROGEN 32 mg/dL (7-20)
[2018-01-23 08:41] LABS: PLATELET COUNT 73 10^3/uL (150-450)
[2018-01-23] MEDS ORDERED: ALBUMIN HUMAN 250 ML IV PRN (09:12)
[2018-01-23] MEDS ORDERED: LIDOCAINE 1% INJ-PF (10 MG/ML) 30 ML SDV ONE (09:51)
--- NOTE | 2018-01-23 12:14 | RADIOLOGY REPORT (SQ) ---
EXAM DESCRIPTION: U/S ABD PARACENTESIS COMPLETED DATE/TIME: 01/23/2018 11:24 am REASON FOR STUDY: ASCITES COMPARISON Abdominal ultrasound 01/16/2018 LIMITATIONS: None. PROCEDURE: After obtaining informed consent, the patient was brought to the ultrasound suite. The p rocedure was performed with the patient on a gurney. Ultrasound was used to identify a prominent poc ket of ascites in the left lower quadrant. An appropriate access site was selected. The patient was prepped and draped in usual sterile fashion. The access site was anesthetized with 8 mL of mL 1% l idocaine. A Ebaq-P-Swyukpvj needle was advanced into the fluid. After aspiration of fluid the needl e, the catheter was advanced off the needle into the fluid. A total of 7,500 mL of clear lizzy color ed fluid was removed. The patient tolerated the procedure well left the department in satisfactory co ndition. IMPRESSION: Successful therapeutic only ultrasound-guided paracentesis COMMENT: Patient medication list reviewed: Yes- Quality ID# [id number]:Eligible professional attests to doc umenting in the medical record they obtained, updated, or reviewed the patient's current medications. Quality ID #[id number]: The patient was prepped and draped using maximum sterile barrier technique including cap, mask, sterile gown, sterile gloves, a large sterile sheet, hand hygiene, and 2% Chlorhexidine fo r cutaneous antisepsis. When ultrasound is used, sterile ultrasound techniques are followed requiring sterile gel and sterile probes. Quality ID #[id number]: Final reports for procedures using fluoroscopy that document radiation exposure jameson tommie, or exposure time and number of fluorographic images (if radiation exposure indices are not avail able) TECHNICAL DOCUMENTATION: JOB ID: [id number] [employer]- All Rights Reserved Reading location - IP/workstation name: [email or web address]
[2018-01-23 12:43] VITALS: BP 158/36
== END 2018-01-23 12:30 | disposition home or self-care (01) ==
LOC: RAD 07:22
PROVIDERS: ATTEND Internal Medicine Gastroenterology
PROC: 0W9F3ZZ Drainage of Abdominal Wall, Percutaneous Approach (ICD-10-PCS; principal; 2018-01-23)
DX: K74.69 Other cirrhosis of liver (principal); R18.8 Other ascites; R94.5 Abnormal results of liver function studies; I12.0 Hypertensive chronic kidney disease with stage 5 chronic kidney disease or end stage renal disease; E11.22 Type 2 diabetes mellitus with diabetic chronic kidney disease; N18.6 End stage renal disease; D63.1 Anemia in chronic kidney disease; E78.5 Hyperlipidemia, unspecified; E05.90 Thyrotoxicosis, unspecified without thyrotoxic crisis or storm; K21.9 Gastro-esophageal reflux disease without esophagitis; Z79.82 Long term (current) use of aspirin; Z79.899 Other long term (current) drug therapy; Z79.51 Long term (current) use of inhaled steroids; Z99.2 Dependence on renal dialysis; Z95.0 Presence of cardiac pacemaker
CPT/HCPCS: 36415; 82962; 84520; 82565; 85027; 85610; 85730; 49083; P9047; J3490

== ENCOUNTER → 2018-02-14 | Outpatient (CLI) | payer MEDICARE, MEDICAID ==
--- NOTE | 2018-02-14 18:05 | XCELERA REPORT ---
[address] [address] Transthoracic Echocardiogram Report Name: BHUPENDRA JUAREZ Age: 62 yrs Gender: Male : 1955 Patient Status: Outpatient Patient Location: Study Date: 02/14/2018 03:00 PM Height: 71 in Weight: 209 lb BSA: 2.2 m2 Procedure: A complete two-dimensional transthoracic echocardiogram was performed (2D, M-mode, spectral and color flow Doppler). The study was technically difficult with many images being suboptimal in quality. Reason For Study: SOB Ordering Physician: MARIBEL FLOWERS Performed By: Soumya Fischer Interpretation Summary The study was technically difficult with many images being suboptimal in quality. Left ventricular systolic function is low normal. There is mild concentric left ventricular hypertrophy. The left ventricle is grossly normal size. Doppler measurements suggest pseudonormalized left ventricular relaxation, which is associated with grade II/IV or mild to moderate diastolic dysfunction Regional wall motion abnormalities cannot be excluded due to limited visualization. The right ventricle is mildly dilated. The right ventricular systolic function is mild to moderately reduced. The left atrium is moderately dilated. The right atrium is moderately dilated. There is no mitral valve stenosis. There is a mild amount of mitral regurgitation No aortic regurgitation is present. There is no aortic valve stenosis There is a mild amount of tricuspid regurgitation There is moderate pulmonary hypertension by echo Right ventricular systolic pressure is estimated to be elevated at 50- 60mmHg. The aortic root is not well visualized but is probably normal size. The inferior vena cava appeared normal and decreased < 50% with respiration (RAP 10-15 mmHg) There is no pericardial effusion. Ascitis noted. Probable small R pl effusion Pacemaker wire noted. MMode/2D Measurements & Calculations RVDd: 3.7 cm LVIDd: 5.2 cmFS: 41.1 % Ao root diam: 3.7 cm IVSd: 1.1 cm LVIDs: 3.1 cmEDV(Teich): 130.0 ml LVPWd: 1.1 cmESV(Teich): 37.0 ml Ao root area: 10.8 cm2 EF(Teich): 71.5 % LA dimension: 4.5 cm LVOT diam: 2.2 cm LVOT area: 4.0 cm2 Doppler Measurements & Calculations MV E max ajay: MV P1/2t max ajay: Ao V2 max: LV V1 max P.5 cm/sec 131.6 cm/sec 130.9 cm/sec 3.1 mmHg MV A max ajay: MV P1/2t: 67.9 msec Ao max PG: LV V1 max: 45.0 cm/sec MVA(P1/2t): 3.2 cm2 6.8 mmHg 87.7 cm/sec MV E/A: 2.9 MV dec slope: THERESA(V,D): 2.7 cm2 567.9 cm/sec2 PA V2 max: PI end-d ajay: TR max ajay: 74.0 cm/sec 130.3 cm/sec 340.7 cm/sec PA max P.2 mmHg TR max P.4 mmHg Left Ventricle The left ventricle is grossly normal size. There is mild concentric left ventricular hypertrophy. Left ventricular systolic function is low normal. Doppler measurements suggest pseudonormalized left ventricular relaxation, which is associated with grade II/IV or mild to moderate diastolic dysfunction. Regional wall motion abnormalities cannot be excluded due to limited visualization. Right Ventricle The right ventricle is mildly dilated. The right ventricular systolic function is mild to moderately reduced. Atria The right atrium is moderately dilated. The left atrium is moderately dilated. Interarterial septum not well visualized and not well dopplered. Cannot comment on ASD/PFO presence. Mitral Valve There is moderate mitral annular calcification. There is no mitral valve stenosis. There is a mild amount of mitral regurgitation. Aortic Valve The aortic valve is mildly calcified. There is no aortic valve stenosis. No aortic regurgitation is present. Tricuspid Valve The tricuspid valve is not well visualized, but is grossly normal. There is no tricuspid stenosis. There is a mild amount of tricuspid regurgitation. There is moderate pulmonary hypertension by echo. Right ventricular systolic pressure is estimated to be elevated at 50-60mmHg. Pulmonic Valve The pulmonic valve is not well visualized. Great Vessels The aortic root is not well visualized but is probably normal size. The inferior vena cava appeared normal and decreased < 50% with respiration (RAP 10-15 mmHg). Effusions There is no pericardial effusion. Ascitis noted. Probable small R pl effusion. Incidental Findings Pacemaker wire noted. : MARIBEL FLOWERS > Kemar Fischer
== END ==
LOC: SP 14:25
PROVIDERS: ATTEND Specialist
DX: R06.02 Shortness of breath (principal)
CPT/HCPCS: 93306

== ENCOUNTER 2018-02-15 11:18 | Day surgery (SDC) | payer MEDICARE, MEDICAID ==
[~2018-02-15 11:18] MED LIST: ALBUMIN HUMAN 250 ML IV PRN
[2018-02-15 12:21] LABS: HEMATOCRIT 30.7 % (37.9-51.0); HEMOGLOBIN 10.3 g/dL (13.5-17.0); MEAN CORPUSCULAR HEMOGLOBIN 31.4 pg (27.0-33.4); MEAN CORPUSCULAR HGB CONC 33.6 g/dL (32.0-36.0); MEAN CORPUSCULAR VOLUME 94 fl (80-97); RED BLOOD COUNT 3.29 10^6/uL (4.35-5.55); RED CELL DISTRIBUTION WIDTH 15.9 % (11.5-14.0); WHITE BLOOD COUNT 5.6 10^3/uL (4.0-10.5)
[2018-02-15 12:24] LABS: INTERNATIONAL RATION (INR) 1.07; PARTIAL THROMBOPLASTIN TIME 34.4 SEC (23.5-35.8); PROTHROMBIN TIME 14.4 SEC (11.4-15.4)
[2018-02-15 12:43] LABS: BLOOD UREA NITROGEN 49 mg/dL (7-20)
[2018-02-15 12:55] LABS: PLATELET COUNT 90 10^3/uL (150-450)
[2018-02-15] MEDS ORDERED: LIDOCAINE 1% INJ-PF (10 MG/ML) 30 ML SDV ONE (13:28)
--- NOTE | 2018-02-15 15:26 | RADIOLOGY REPORT (SQ) ---
EXAM DESCRIPTION: U/S ABD PARACENTESIS COMPLETED DATE/TIME: 02/15/2018 2:56 pm REASON FOR STUDY: ASCITES COMPARISON None. LIMITATIONS: None. PROCEDURE: After obtaining informed consent, the patient was brought to the ultrasound suite. The p rocedure was performed with the patient on a gurney. Ultrasound was used to identify a prominent poc ket of ascites in the right lower quadrant. An appropriate access site was selected. The patient wa s prepped and draped in usual sterile fashion. The access site was anesthetized with 5 mL 1% lidoca ine. A Juuz-T-Ejwuxjiu needle was advanced into the fluid. After aspiration of fluid the needle, th e catheter was advanced off the needle into the fluid. A total of 8,000 mL of serosanguineous fluid was removed. The patient tolerated the procedure well left the department in satisfactory condition. IMPRESSION: Successful ultrasound-guided paracentesis COMMENT: Patient medication list reviewed: Yes- Quality ID# [id number]:Eligible professional attests to doc umenting in the medical record they obtained, updated, or reviewed the patient's current medications. TECHNICAL DOCUMENTATION: JOB ID: [id number] [employer]- All Rights Reserved Reading location - IP/workstation name: [facility]-[email or web address]
[2018-02-15 15:57] VITALS: BP 150/60
== END 2018-02-15 16:00 | disposition home or self-care (01) ==
LOC: RAD 11:18
PROVIDERS: ATTEND Internal Medicine Gastroenterology
DX: R18.8 Other ascites (principal); K74.69 Other cirrhosis of liver
CPT/HCPCS: 36415; 84520; 82565; 85027; 85610; 85730; 49083; P9047; J3490